=== PATIENT | male | born 1970 | race Caucasian/White ===

== ENCOUNTER 2017-01-31 18:46 | Inpatient (IN) | payer MEDICARE, MEDICAID ==
--- NOTE | 2017-01-31 18:48 | ED Physician Chart ---
Chief Complaint/HPI - Patient Information Date Seen:: 01/31/17 Time Seen:: 18:47 Chief Complaint:: elevated blood sugar History of Present Illness:: 46-year-old male history of mild mental retardation, diabetes and hypertension, brought in by ambulance from [facility] term [facility] with acute, severe, elevated blood sugar that was noticed about 2 hours prior to arrival. Also has associated elevated blood pressure. Had some associated dizziness earlier which is now resolved. Denies nausea, vomiting, diaphoresis, chest pain, palpitations, headache, acute vision changes. History limited as patient's underlying intellectual disability prevents him from providing an accurate history. History provided by EMS and EMS run sheet Historian:: Patient, EMS Review:: Nurse's Note Reviewed, EMS run form Reviewed, Transfer documents Reviewed Review of Systems - Review of Systems Other: Complete system review otherwise unremarkable except as noted in history of present illness. Past Medical History - Past Medical History Past Medical History: HTN, DM, Other Family History: None Social History: Non Smoker, No Alcohol, No Drug Use, Care Facility Surgical History: None Psychiatricy History: Bipolar Medication: Reviewed Family Medical History - Family Member Mother History Unknown: Yes Ethnicity: Non- Physical Exam - Physical Examination Other:: INITIAL VITAL SIGNS: Reviewed by me GENERAL: Alert and interactive. No acute distress HEAD: Head is normocephalic and atraumatic EYES: EOMI. PERRL. No scleral icterus. No conjunctival injection ENT: Moist mucous membranes. NECK: Supple. No masses. Full range of motion RESPIRATORY: No tachypnea. Clear breath sounds bilaterally. No wheezing, rales, or rhonchi CV: Regular rate and rhythm. No murmurs, rubs, or gallops ABDOMEN: Soft, non-distended, non-tender. No guarding. No rebound. No masses. EXTREMITIES: No deformity. No cyanosis. No edema. SKIN: Warm and dry. No obvious rashes. NEUROLOGIC: Alert and oriented. Face is symmetric. Speech is normal. Moves all extremities equally. Motor and sensory distally intact. Labs/Radiology/EKG Results - Lab Results Results: Lab Results 01/31/17 01/31/17 01/31/17 Range/Units 18:50 18:53 18:53 WBC 6.5 (4.8-10.8) Th/cmm RBC 3.89 L (4.30-5.70) Mil/cmm Hgb 12.5 L (13.2-17.3) gm/dL Hct 34.3 L (39.0-49.0) % MCV 88.2 (80-99) fl MCH 32.1 H (26.0-30.0) pg MCHC Differential 36.4 H (28.0-36.0) pg RDW 11.8 (11.5-20.0) % Plt Count 267 (150-400) Th/cmm MPV 8.2 fl Neutrophils % 44.4 (40.0-80.0) % Lymphocytes % 43.2 (20.0-50.0) % Monocytes % 5.7 (2.0-10.0) % Eosinophils % 5.8 H (0.0-5.0) % Basophils % 0.9 (0.0-2.0) % PT (9.5-11.5) SECONDS INR (0.5-1.4) Sodium 118 L* (136-145) mEq/L Potassium 4.0 (3.5-5.1) mEq/L Chloride 93 L (98-107) mEq/L Carbon Dioxide 24.5 (21.0-31.0) mEq/L Anion Gap 4.5 L (7.0-16.0) BUN 20 (7-25) mg/dL Creatinine 2.1 H (0.7-1.3) mg/dL Est GFR ( Amer) 43.8 (>90) ml/min Est GFR (Non-Af Amer) 36.2 ml/min BUN/Creatinine Ratio 9.5 Glucose 449 H (70-105) mg/dL POC Glucose (70 - 105) MG/DL Calcium 9.1 (8.6-10.3) mg/dL Total Bilirubin 0.3 (0.3-1.0) mg/dL AST 24 (13-39) U/L ALT 20 (7-52) U/L Alkaline Phosphatase 39 (34-104) U/L Troponin I (0.01-0.05) ng/mL Total Protein 5.8 L (6.0-8.3) gm/dL Albumin 3.3 L (4.2-5.5) gm/dL Globulin 2.5 gm/dL Albumin/Globulin Ratio 1.3 (1.0-1.8) Triglycerides 1007 H (<150) mg/dL Cholesterol 259 H (<200) mg/dL LDL Cholesterol Direct 84 (75-193) mg/dL HDL Cholesterol 30 (23-92) mg/dL Urine Source CLEAN C Urine Color STRAW Urine Clarity CLEAR (CLEAR) Urine pH 6.0 Ur Specific [place] 1.010 (1.005-1.030) Urine Protein 300 (NEGATIVE) mg/dL Urine Glucose (UA) 500 H (NEGATIVE) mg/dL Urine Ketones NEGATIVE (NEGATIVE) mg/dL Urine Blood SMALL H (NEGATIVE) Urine Nitrate NEGATIVE (NEGATIVE) Urine Bilirubin NEGATIVE (NEGATIVE) Urine Urobilinogen 0.2 (0.2 - 1.0) E.U./dL Ur Leukocyte Esterase NEGATIVE (NEGATIVE) Urine RBC 2-5 H (0-5) /hpf Urine WBC NONE SEEN (0-5) /hpf Ur Epithelial Cells NONE SEEN (FEW) /lpf Urine Bacteria NONE SEEN (NONE SEEN) /hpf 01/31/17 01/31/17 01/31/17 Range/Units 18:53 18:53 18:58 WBC (4.8-10.8) Th/cmm RBC (4.30-5.70) Mil/cmm Hgb (13.2-17.3) gm/dL Hct (39.0-49.0) % MCV (80-99) fl MCH (26.0-30.0) pg MCHC Differential (28.0-36.0) pg RDW (11.5-20.0) % Plt Count (150-400) Th/cmm MPV fl Neutrophils % (40.0-80.0) % Lymphocytes % (20.0-50.0) % Monocytes % (2.0-10.0) % Eosinophils % (0.0-5.0) % Basophils % (0.0-2.0) % PT 10.1 (9.5-11.5) SECONDS INR 0.97 (0.5-1.4) Sodium (136-145) mEq/L Potassium (3.5-5.1) mEq/L Chloride (98-107) mEq/L Carbon Dioxide (21.0-31.0) mEq/L Anion Gap (7.0-16.0) BUN (7-25) mg/dL Creatinine (0.7-1.3) mg/dL Est GFR ( Amer) (>90) ml/min Est GFR (Non-Af Amer) ml/min BUN/Creatinine Ratio Glucose (70-105) mg/dL POC Glucose 440 H (70 - 105) MG/DL Calcium (8.6-10.3) mg/dL Total Bilirubin (0.3-1.0) mg/dL AST (13-39) U/L ALT (7-52) U/L Alkaline Phosphatase (34-104) U/L Troponin I 0.02 (0.01-0.05) ng/mL Total Protein (6.0-8.3) gm/dL Albumin (4.2-5.5) gm/dL Globulin gm/dL Albumin/Globulin Ratio (1.0-1.8) Triglycerides (<150) mg/dL Cholesterol (<200) mg/dL LDL Cholesterol Direct (75-193) mg/dL HDL Cholesterol (23-92) mg/dL Urine Source Urine Color Urine Clarity (CLEAR) Urine pH Ur Specific [place] (1.005-1.030) Urine Protein (NEGATIVE) mg/dL Urine Glucose (UA) (NEGATIVE) mg/dL Urine Ketones (NEGATIVE) mg/dL Urine Blood (NEGATIVE) Urine Nitrate (NEGATIVE) Urine Bilirubin (NEGATIVE) Urine Urobilinogen (0.2 - 1.0) E.U./dL Ur Leukocyte Esterase (NEGATIVE) Urine RBC (0-5) /hpf Urine WBC (0-5) /hpf Ur Epithelial Cells (FEW) /lpf Urine Bacteria (NONE SEEN) /hpf - Radiology Results Comments:: Single AP VIEW Portable Chest X-ray was interpreted independently and contemporaneously by Fadi Mcmillan MD: No cardiomegaly Normal mediastinum No lung infiltrates No pneumothorax No soft tissue or bony abnormalities - EKG Interpretations Comments:: 12-lead EKG Interpretation by Fadi Mcmillan MD: Normal Sinus Rhythm with ventricular rate of 79 beats per minute Normal axis Normal intervals No acute ST or T wave changes. No obvious STEMI ED Septic Shock - . Is Septic Shock (SBP<90, OR Lactate>4 mmol\L) present?: No Reassessment (Disposition) - Reassessment Reassessment:: Patient received 2 L of IV normal saline. Blood sugar remained 424. Blood pressure was still 159 systolic. The patient has mental retardation making it difficult to obtain a good history. Patient also has hyponatremia 118. While there is probably some displacement due to the elevated blood sugar he still remained severely hyponatremic. Given the resistance to his treatment here in the ER he will need admission for further workup and treatment. Patient case discussed with admitting physician. Patient will be admitted for further workup and treatment. Reassessment Condition:: Unchanged - Diagnosis Diagnosis:: Acute hyperglycemia due to uncontrolled diabetes noticed type II Acute elevated blood pressure due to uncontrolled hypertension Acute kidney failure - Patient Disposition Discharge/Transfer:: Acute Care w/in this hosp Admitted to:: ICU Admitting Medical Physician:: Zia Gutierrez Time:: 20:29 Condition at Disposition:: Stable
[2017-01-31 19:06] LABS: % BASOPHILS 0.9 % (0.0-2.0); % EOSINOPHILS 5.8 % (0.0-5.0); % LYMPHOCYTES 43.2 % (20.0-50.0); % MONOCYTES 5.7 % (2.0-10.0); % NEUTROPHILS 44.4 % (40.0-80.0); HEMATOCRIT 34.3 % (39.0-49.0); HEMOGLOBIN 12.5 gm/dL (13.2-17.3); MEAN CELL VOLUME 88.2 fl (80-99); MEAN CORPUSCULAR HEMOGLOBIN 32.1 pg (26.0-30.0); MEAN CORPUSCULAR HGB CONC 36.4 pg (28.0-36.0); MEAN PLATELET VOLUME 8.2 fl; NEUTROPHILE ABSOLUTE 2.8 Th/cmm (1.8-8.0); PLATELET COUNT 267 Th/cmm (150-400); RED BLOOD COUNT 3.89 Mil/cmm (4.30-5.70); RED CELL DISTRIBUTION WIDTH 11.8 % (11.5-20.0); WHITE BLOOD COUNT 6.5 Th/cmm (4.8-10.8)
[2017-01-31 19:22] LABS: ALB/GLOB RATIO 1.3 (1.0-1.8); ANION GAP 4.5 (7.0-16.0); BILIRUBIN,TOTAL 0.3 mg/dL (0.3-1.0); BUN/CREATININE RATIO 9.5; CALCIUM SERUM 9.1 mg/dL (8.6-10.3); CARBON DIOXIDE 24.5 mEq/L (21.0-31.0); CREATININE - SERUM 2.1 mg/dL (0.7-1.3)
[2017-01-31 19:24] LABS: INR 0.97 (0.5-1.4); PROTHROMBIN TIME (TEST) 10.1 SECONDS (9.5-11.5); TROP I 0.02 ng/mL (0.01-0.05)
[2017-01-31 19:25] LABS: URINE BILIRUBIN NEGATIVE (NEGATIVE); URINE BLOOD SMALL (NEGATIVE); URINE COLOR STRAW; URINE GLUCOSE (UA) 500 mg/dL (NEGATIVE); URINE KETONE NEGATIVE (NEGATIVE); URINE PROTEIN 300 mg/dL (NEGATIVE); URINE UROBILINOGEN 0.2 E.U./dL (0.2 - 1.0)
[2017-01-31 19:26] LABS: URINE BACTERIA NONE SEEN /hpf (NONE SEEN); URINE EPITHELIAL CELLS NONE SEEN /lpf (FEW); URINE WBC NONE SEEN /hpf (0-5)
[2017-01-31] MEDS ORDERED: Sodium Chloride 0.9% 1,000 ML IV ONE ×2 (19:53→20:11)
[2017-01-31] MEDS ORDERED: INSULIN HUMAN REGULAR 100 UNITS/ML UNIT IVP ONE (20:24)
[2017-01-31] MEDS ORDERED: INSULIN HUMAN REGULAR 100 UNITS/ML UNIT ONE (20:36)
[2017-01-31 20:52] LABS: BNP 31.1 pg/mL (5.0-100.0)
[2017-01-31] MEDS ORDERED: INSULIN ASPART SLIDING SCALE 100 UNITS/ML UNIT SUBQ PRN (22:29)
[2017-01-31] MEDS ORDERED: Non-Formulary Item 1 EA (Albuterol Sulfate [Ventolin Hfa] 1 PUFF) IH PRN (23:36)
[2017-01-31] MEDS ORDERED: Albuterol Nebulizer 2.5mg/3mL HHN PRN (23:36)
[2017-01-31] MEDS: INSULIN HUMAN REGULAR 100 UNITS/ML UNIT SUBQ SCH (23:40)
[2017-01-31] MEDS: Sodium Chloride 0.9% 1,000 ML IV SCH (23:45)
--- NOTE | 2017-02-01 01:21 | Admit Criteria Form ---
Admit Criteria Forms - Admit Criteria Diagnosis: DIABETES Clinical Indications for Admission to Inpatient Care (Place 'X' for any and all applicable criteria): Admission is indicated by presence of ALL (if I & II) or ANY ONE (if III or IV) of the following (1)(2)(3)(4): [X]I. Diabetes is uncontrolled as indicated by ANY ONE of the following: [ ]a) Diabetic ketoacidosis as indicated by ALL of the following (8): [ ]i) Hyperglycemia (eg, plasma glucose greater than 200 mg/ dL (11.1 mmol/L)) [ ]ii) Acidosis (eg, arterial pH less than 7.30, serum bicarbonate level less than 15 mEq/L (mmol/L)) [ ]iii) Moderate ketonuria or ketonemia [ ]b) Hyperglycemic hyperosmolar state as indicated by ALL of the following(9)(10): [ ]i) Neurologic dysfunction (eg, stupor, coma, hemiparesis , seizure)(13) [ ]ii) Plasma glucose greater than 600 mg/dL (33.3 mmol/L) [ ]iii) Serum osmolality greater than 320 mOsm/kg (mmol/kg) [X]c) Severe signs or symptoms secondary to hyperglycemia indicated by ANY ONE of the following: [ ]i) Altered mental status(10) [ ]ii) Significant hypovolemia or dehydration [ ]iii) Intractable nausea or vomiting [ ]iv) Unexplained fever or severe infection [X]v) Severe electrolyte abnormality (eg, hypokalemia, hyperkalemia, hypernatremia) [X]II. Management at other levels of care (Also use Diabetes: Observation Care as appropriate) is not feasible because of ANY ONE of the following: [X]a) Condition was not adequately corrected with treatment at other levels of care. [ ]b) Treatment at other levels of care is not appropriate because of condition severity (eg, hyperosmolar coma). [ ]III. Contraindications and/or Inappropriate clinical situations for Observational Care in patients with Diabetes, when ANY ONE of the following is required: [ ]a) Patient require specific diagnostic workup or therapeutic intervention 22 [ ]b) Patient with abnormal vital signs or altered mental status 23 [ ]IV. General contraindications and/or Inappropriate clinical situations for Observational Care in patients with Diabetes, when ANY ONE of the following is required: [ ]a) Prediction of prolongation of LOS based on ANY ONE of the following may be considered as a contraindication for observational care 2, 3, 4, 5, 6, 7, 8, 9, 10, 11 [ ]i) Age > 65 yrs. [ ]ii) Patient arriving by ambulance [ ]iii) Patient with high acuity [ ]iv) Patient requiring vital sign monitoring [ ]v) Patient on IV medication [ ]b) Systolic blood pressures 180mmHg 3,12 [ ]c) Patient with altered mental status including delirium and other alteration of consciousness, (3) [ ]d) Patient whose discharge disposition will be to a intermediate home or rehabilitation home should not be managed in Emergency Department Observation Unit. CMS rule requires 3 days hospital stay before such placement.3,13 [ ]e) Patient with failure to thrive due to broad array of etiologies 3,16,17 [ ]f) Inability to ambulate 3,14 Extended stay beyond goal length of stay may be needed for(3)(20): [ ]a) Treatment of precipitating causes [ ]b) Development of hypoglycemia [ ]c) Complications of treatment [ ]d) Complications of decompensated diabetes (eg, acute gastric dilatation, persistent metabolic or neurologic derangement) [ ]e) Active Comorbidities [ ]f) Older patients( 65 years or older) The original [facility] content created by [employer] has been revised. The portions of the content which have been revised are identified through the use of italic text or in bold,and [facility] has neither reviewed nor approved the modified material. All other unmodified content is copyright [facility]. Please see references footnoted in the original [facility] edition 2016 Admit Criteria Met?: Yes
[2017-02-01] MEDS: INSULIN HUMAN REGULAR 100 UNITS/ML UNIT SUBQ SCH (07:03)
[2017-02-01] MEDS: INSULIN ASPART SLIDING SCALE 100 UNITS/ML UNIT SUBQ SCH ×4 (08:12→22:27)
--- NOTE | 2017-02-01 10:09 | Consultation ---
AGE: 46. SEX: Male. PHYSICIAN: Zia Gutierrez M.D. LUMBER PILER: Dr. Haley. REASON FOR THE CONSULT: Evaluating psychotropic medications. HISTORY OF PRESENT ILLNESS: The patient is a 46-year-old male with history of what seems to be schizoaffective disorder. The patient was admitted to the hospital with elevated blood sugar and I was asked to evaluate the patient. The patient said that he has history of mental illness, but he thinks that he has depression and suicide. The patient is taking medications, what seems to be schizoaffective disorder. The patient said that he is currently not suicidal or homicidal, and he denies any auditory or visual hallucinations or delusions. He also denies any hallucinations or delusions or paranoia. PAST PSYCHIATRIC HISTORY: The patient has history of what seems to be schizoaffective disorder. PAST MEDICAL HISTORY: Diabetes mellitus that seems to be out of control. SOCIAL HISTORY: The patient lives in skilled nursing. He is single, never and has no children. MENTAL STATUS EXAM: The patient appears his stated age. Anxious. Sad affect. In a depressed mood. Thought processes are mainly goal directed. The patient denies hallucinations or delusions and denies any suicidal or homicidal ideations. The patient is alert and oriented to time, place, person, and situation. Intact immediate, recent and remote memories. Fair insight. Fair judgment. ASSESSMENT: PRIMARY DIAGNOSIS: Schizoaffective disorder, depressed episode. TREATMENT PLAN AND RECOMMENDATIONS: The patient's blood sugar is out of control at this time and will decrease Zyprexa to 10 mg at bedtime. TREATMENT PLAN: We will get a Depakote blood level and we will also decrease Risperdal to 3 mg every morning. Also, we will continue other psychotropic medications, but plan to try to adjust psychotropic medications and decrease it. Thanks to Dr. Gutierrez and we will follow up with you. [facility]# [id number]
[2017-02-01] MEDS: Sodium Chloride 0.9% 1,000 ML IV SCH (13:57)
[2017-02-01] MEDS ORDERED: Ipratropium Neb 0.5 mg/2.5 mL UD HHN SCH (15:00)
--- NOTE | 2017-02-01 16:50 | History & Physical ---
CHIEF COMPLAINT: Hyperglycemia and 500 was blood sugar. HISTORY OF PRESENT ILLNESS: A 46-year-old male with history of mild mental retardation with a history of diabetes and hypertension, brought in by ambulance from [facility] with acute severe elevated blood sugars, which was noted to be there 2 hours prior to arrival and he also has associated elevated blood pressure and had some associated dizziness, which was resolved over a period of time. Denied nausea, vomiting, diaphoresis, chest pain, palpitations, headache, acute vision changes. History is limited secondary to his intellectual disability, which prevents him to give any accurate history, but the patient is very anxious and ____ psychotic medications and history basically obtained from the Emergency Room notes. REVIEW OF SYSTEMS: Other complete system review otherwise unremarkable except as noted in the history of the present illness. PAST MEDICAL HISTORY: Significant for hypertension, diabetes and mild mental retardation and hypertriglyceridemia. FAMILY HISTORY: Noncontributory. SOCIAL HISTORY: He is a smoker, but he has no history of alcohol or drug abuse. SURGICAL HISTORY: None. PSYCHIATRIC HISTORY: He has bipolar disorder. MEDICATIONS: The patient is on several medications. See the reconciliation list. ALLERGIES: THE PATIENT HAS SEVERAL ALLERGIES. HE IS ALLERGIC TO PENICILLIN, ASPIRIN, ____, EGGS, LATEX, IODINE, and see allergy list on the chart. FAMILY HISTORY: Noncontributory. The patient's ethnicity is non-. PHYSICAL EXAMINATION: VITAL SIGNS: Temperature of 96.8, pulse of 78, respirations of 149/88 at 6 o'clock in the morning and then it increased to 212/110 and 155/89 and it increased to 183/86 now at 1458 secondary to his anxiety and the patient wants to leave and he is anxious to smoke, respirations 16, oxygen saturation is 98% and pain scale level is 0. GENERAL: The patient is alert and interactive and not in any acute distress. Mild mental retardation, but overall he is very knowledgeable about his ____ and he was telling me that he would not like to stay here and he would like to go out and smoke and if he is not allowed, he can get out of the hospital on his own will. HEENT: Head is atraumatic and normocephalic. Eyes, EOMI and PERRL, no scleral icterus. No conjunctival injection noted. ENT, moist mucous membranes. NECK: Supple, no masses. Full range of motion noted. RESPIRATORY: No tachypnea. Clear breath sounds are heard. CARDIOVASCULAR: Regular rate and rhythm. No murmurs. ABDOMEN: Soft, nondistended, nontender, no guarding and no rebound. No masses. EXTREMITIES: No deformity. No cyanosis, no clubbing, no edema. SKIN: Warm and dry to palpation. No rashes. NEUROLOGIC: The patient is alert and oriented. Face is symmetric. Speech is normal. Moves all extremities equally. His motor and sensory functions are intact distally. LAB RESULTS: Pertinent lab results show WBC of 6.5 and hemoglobin 12.5 and platelets 267. His sodium is 118 and potassium 4. His GFR is 36.2 and BUN is 20 and creatinine is 2.1. His glucose initially was in 500 at the Emergency Room, but last night, it was 449 in the evening and calcium is 9.1 and his triglycerides 1007. Cholesterol 259, LDL 84, HDL 30 and urine is normal and the chest x-ray shows no cardiomegaly, normal mediastinum, no infiltrates and EKG shows normal sinus rhythm with ventricular rate of 79. COURSE IN THE EMERGENCY ROOM: He received 2 liters of normal saline and blood sugar remained at 424 and he also received 10 units of insulin and his blood pressure was still 159 systolic and the patient had hyponatremia of 118. This could be because of the elevated glucose. DIAGNOSES: At this time is: 1. Acute hyperglycemia due to uncontrolled diabetes type 2. 2. Acute elevated blood pressure due to uncontrolled hypertension. 3. Acute kidney failure. 4. Bipolar diagnosis. 5. Anxiety. 6. Multiple allergies to medications. PLAN: To admit him to the ICU initially secondary to his hyperglycemia and electrolyte imbalance and uncontrolled hypertension. Today, the patient seems to be stable except the blood pressure is elevated secondary to his anxiety, so I will start him on Ativan 1 mg p.o. q. 6 hours and we will transfer him to the med/surg tele, so he can smoke and probably his anxiety might come down and Dr. Haley has seen the patient already and started him on all the antipsychotic medications. So the plan is to observe him and then once the blood pressure is stable, probable discharge to long term. JOB# [id number]
[2017-02-01] MEDS: OLANZapine 10 mg Oral Disintegrating Tab PO SCH (20:57)
[2017-02-02] MEDS: Sodium Chloride 0.9% 1,000 ML IV SCH (01:45)
[2017-02-02 06:37] LABS: % BASOPHILS 0.9 % (0.0-2.0); % EOSINOPHILS 4.8 % (0.0-5.0); % LYMPHOCYTES 37.1 % (20.0-50.0); % MONOCYTES 5.8 % (2.0-10.0); % NEUTROPHILS 51.4 % (40.0-80.0); HEMOGLOBIN 13.1 gm/dL (13.2-17.3); MEAN CORPUSCULAR HEMOGLOBIN 30.4 pg (26.0-30.0); MEAN CORPUSCULAR HGB CONC 34.1 pg (28.0-36.0); MEAN PLATELET VOLUME 8.5 fl; NEUTROPHILE ABSOLUTE 4.2 Th/cmm (1.8-8.0); PLATELET COUNT 262 Th/cmm (150-400); RED BLOOD COUNT 4.31 Mil/cmm (4.30-5.70)
[2017-02-02 06:59] LABS: ALB/GLOB RATIO 1.2 (1.0-1.8); ANION GAP 4.3 (7.0-16.0); BILIRUBIN,TOTAL 0.2 mg/dL (0.3-1.0); CALCIUM SERUM 9.1 mg/dL (8.6-10.3); MAGNESIUM 1.7 mg/dL (1.9-2.7); PHOSPHOROUS 3.6 mg/dL (2.5-5.0); POTASSIUM SERUM 4.3 mEq/L (3.5-5.1); URIC ACID 4.2 mg/dL (4.4-7.6)
[2017-02-02 07:09] LABS: HEMATOCRIT 38.3 % (39.0-49.0)
[2017-02-02] MEDS: INSULIN 70/30 100 UNITS/ML SUBQ SCH (08:00)
[2017-02-02] MEDS: INSULIN ASPART SLIDING SCALE 100 UNITS/ML UNIT SUBQ SCH ×4 (08:00→21:16)
[2017-02-02] MEDS: Aspirin 81mg Chewable Tab PO SCH (08:53)
[2017-02-02] MEDS: Fenofibrate, Micronized 134 mg Cap PO SCH (08:53)
--- NOTE | 2017-02-02 09:21 | Diagnostic Imaging Report ---
Portable chest x-ray History: Cough Allowing for portable technique the heart size is normal. No focal pulmonary parenchymal processes. No hilar or mediastinal abnormalities. Impression: No acute abnormalities.
--- NOTE | 2017-02-02 09:56 | General Progress Note ---
Subjective - Review of Systems Events since last encounter: no distress Objective - Results Result Diagrams: 02/02/17 06:05 02/02/17 06:05 Recent Labs: Laboratory Last Values WBC 6.5 Th/cmm (4.8-10.8) 01/31/17 18:53 RBC 4.31 Mil/cmm (4.30-5.70) 02/02/17 06:05 Hgb 13.1 gm/dL (13.2-17.3) L 02/02/17 06:05 Hct 38.3 % (39.0-49.0) L D 02/02/17 06:05 MCV 89.0 fl (80-99) 02/02/17 06:05 MCH 30.4 pg (26.0-30.0) H 02/02/17 06:05 MCHC Differential 34.1 pg (28.0-36.0) 02/02/17 06:05 RDW 12.0 % (11.5-20.0) 02/02/17 06:05 Plt Count 262 Th/cmm (150-400) 02/02/17 06:05 MPV 8.5 fl 02/02/17 06:05 Neutrophils % 51.4 % (40.0-80.0) 02/02/17 06:05 Lymphocytes % 37.1 % (20.0-50.0) 02/02/17 06:05 Monocytes % 5.8 % (2.0-10.0) 02/02/17 06:05 Eosinophils % 4.8 % (0.0-5.0) 02/02/17 06:05 Basophils % 0.9 % (0.0-2.0) 02/02/17 06:05 PT 10.1 SECONDS (9.5-11.5) 01/31/17 18:53 INR 0.97 (0.5-1.4) 01/31/17 18:53 Sodium 133 mEq/L (136-145) L D 02/02/17 06:05 Potassium 4.3 mEq/L (3.5-5.1) 02/02/17 06:05 Chloride 109 mEq/L (98-107) H 02/02/17 06:05 Carbon Dioxide 24.0 mEq/L (21.0-31.0) 02/02/17 06:05 Anion Gap 4.3 (7.0-16.0) L 02/02/17 06:05 BUN 24 mg/dL (7-25) 02/02/17 06:05 Creatinine 2.0 mg/dL (0.7-1.3) H 02/02/17 06:05 Est GFR ( Amer) 46.3 ml/min (>90) 02/02/17 06:05 Est GFR (Non-Af Amer) 38.3 ml/min 02/02/17 06:05 BUN/Creatinine Ratio 12.0 02/02/17 06:05 Glucose 242 mg/dL (70-105) H 02/02/17 06:05 POC Glucose 260 MG/DL (70 - 105) H 02/01/17 22:05 Hemoglobin A1c % 14.2 % (4.0-6.0) H 01/31/17 18:52 Uric Acid 4.2 mg/dL (4.4-7.6) L 02/02/17 06:05 Calcium 9.1 mg/dL (8.6-10.3) 02/02/17 06:05 Phosphorus 3.6 mg/dL (2.5-5.0) 02/02/17 06:05 Magnesium 1.7 mg/dL (1.9-2.7) L 02/02/17 06:05 Total Bilirubin 0.2 mg/dL (0.3-1.0) L 02/02/17 06:05 AST 17 U/L (13-39) 02/02/17 06:05 ALT 18 U/L (7-52) 02/02/17 06:05 Alkaline Phosphatase 33 U/L (34-104) L 02/02/17 06:05 Troponin I 0.02 ng/mL (0.01-0.05) 01/31/17 18:53 B-Natriuretic Peptide 31.1 pg/mL (5.0-100.0) 01/31/17 18:53 Total Protein 5.8 gm/dL (6.0-8.3) L 02/02/17 06:05 Albumin 3.1 gm/dL (4.2-5.5) L 02/02/17 06:05 Globulin 2.7 gm/dL 02/02/17 06:05 Albumin/Globulin Ratio 1.2 (1.0-1.8) 02/02/17 06:05 Triglycerides 729 mg/dL (<150) H 02/02/17 06:05 Cholesterol 307 mg/dL (<200) H 02/02/17 06:05 LDL Cholesterol Direct 115 mg/dL (75-193) 02/02/17 06:05 HDL Cholesterol 36 mg/dL (23-92) 02/02/17 06:05 Amylase 53 U/L (29-103) 02/02/17 06:05 Lipase 113 U/L (11-82) H 02/02/17 06:05 TSH 2.27 uIU/ml (0.34-5.60) 02/02/17 06:05 Urine Source CLEAN C 01/31/17 18:50 Urine Color STRAW 01/31/17 18:50 Urine Clarity CLEAR (CLEAR) 01/31/17 18:50 Urine pH 6.0 01/31/17 18:50 Ur Specific [place] 1.010 (1.005-1.030) 01/31/17 18:50 Urine Protein 300 mg/dL (NEGATIVE) 01/31/17 18:50 Urine Glucose (UA) 500 mg/dL (NEGATIVE) H 01/31/17 18:50 Urine Ketones NEGATIVE mg/dL (NEGATIVE) 01/31/17 18:50 Urine Blood SMALL (NEGATIVE) H 01/31/17 18:50 Urine Nitrate NEGATIVE (NEGATIVE) 01/31/17 18:50 Urine Bilirubin NEGATIVE (NEGATIVE) 01/31/17 18:50 Urine Urobilinogen 0.2 E.U./dL (0.2 - 1.0) 01/31/17 18:50 Ur Leukocyte Esterase NEGATIVE (NEGATIVE) 01/31/17 18:50 Urine RBC 2-5 /hpf (0-5) H 01/31/17 18:50 Urine WBC NONE SEEN /hpf (0-5) 01/31/17 18:50 Ur Epithelial Cells NONE SEEN /lpf (FEW) 01/31/17 18:50 Urine Bacteria NONE SEEN /hpf (NONE SEEN) 01/31/17 18:50 - Physical Exam Vitals and I&O: Vital Signs Temp 98.1 F 02/02/17 04:00 Pulse 99 02/02/17 08:53 Resp 18 02/02/17 04:00 BP 180/111 02/02/17 08:53 Pulse Ox 94 02/02/17 04:00 Intake & Output 02/01/17 02/02/17 02/02/17 18:59 06:59 18:59 Intake Total 2680 1250 Output Total 2675 Balance 5 1250 Intake: Intake, IV Amount 1000 Sodium Chloride 0.9% 1, 1000 000 ml @ 75 mls/hr IV . [id number] [facility] Rx#:[id number] Oral 1680 1250 Output: Urine 2675 Other: # Voids 6 7 Active Medications: Current Medications Acetaminophen (Tylenol) 650 mg PO Q4H PRN PRN Reason: Fever > 101 Stop: 04/01/17 23:35 Albuterol Sulfate (Albuterol 2.5mg/3ml Neb Ud) 2.5 mg HHN Q4H PRN PRN Reason: Wheezing Amlodipine Besylate (Norvasc) 10 mg PO DAILY [facility] Stop: 04/03/17 08:59 Last Admin: 02/02/17 08:53 Dose: 10 mg Aspirin (Aspirin Chewable) 81 mg PO DAILY [facility] Stop: 04/03/17 08:59 Last Admin: 02/02/17 08:53 Dose: 81 mg Clonidine HCl (Catapres) 0.1 mg PO DAILY [facility] Stop: 04/02/17 08:59 Last Admin: 02/02/17 08:53 Dose: 0.1 mg Divalproex Sodium (Depakote Dr) 500 mg PO DAILY [facility] PRN Reason: Protocol Stop: 04/02/17 08:59 Last Admin: 02/02/17 08:54 Dose: 500 mg Fenofibrate (Tricor) 134 mg PO DAILY [facility] Stop: 04/03/17 08:59 Last Admin: 02/02/17 08:53 Dose: 134 mg Sodium Chloride (Nacl 0.9%) 1,000 mls @ 75 mls/hr IV .[id number] [facility] Stop: 04/01/17 23:35 Last Admin: 02/02/17 01:45 Dose: 75 mls/hr Ibuprofen (Motrin) 800 mg PO QID PRN PRN Reason: PAIN Stop: 04/01/17 23:35 Insulin Aspart (Novolog Insulin Sliding Scale) 0 units SUBQ ACHS [facility] PRN Reason: Protocol Stop: 04/02/17 07:29 Last Admin: 02/02/17 08:00 Dose: 6 units Insulin Human Isoph/Insulin Regular (Novolin 70/30) 7 units SUBQ QDAC [facility] PRN Reason: Protocol Stop: 04/03/17 07:29 Last Admin: 02/02/17 08:00 Dose: 7 unit Ipratropium [place] (Atrovent Neb 0.5mg/2.5ml) 0.5 mg HHN TIDRT [facility] Stop: 04/02/17 14:59 Lisinopril (Zestril) 40 mg PO DAILY [facility] Stop: 04/02/17 08:59 Last Admin: 02/01/17 09:00 Dose: 40 mg Lorazepam (Ativan) 1 mg PO Q6HR PRN; Protocol PRN Reason: Anxiety Stop: 04/02/17 15:41 Last Admin: 02/01/17 22:29 Dose: 1 mg Olanzapine (Zyprexa Zydis) 10 mg PO HS [facility] PRN Reason: Protocol Stop: 04/02/17 20:59 Last Admin: 02/01/17 20:57 Dose: 10 mg Paroxetine HCl (Paxil) 30 mg PO DAILY [facility] PRN Reason: Protocol Stop: 04/02/17 08:59 Last Admin: 02/02/17 08:52 Dose: 30 mg Pioglitazone HCl (Actos) 30 mg PO DAILY [facility] Stop: 04/02/17 08:59 Last Admin: 02/02/17 08:53 Dose: 30 mg Risperidone (Risperdal) 3 mg PO DAILY [facility] PRN Reason: Protocol Stop: 04/02/17 08:59 Last Admin: 02/02/17 08:52 Dose: 3 mg Sitagliptin Phosphate (Januvia) 100 mg PO DAILY [facility] Stop: 04/02/17 08:59 Last Admin: 02/02/17 08:52 Dose: 100 mg Trazodone HCl (Desyrel) 200 mg PO HS [facility] PRN Reason: Protocol Stop: 04/02/17 20:59 Last Admin: 02/01/17 20:57 Dose: 200 mg General: No acute distress HEENT: Atraumatic Neck: Supple Cardiovascular: Regular rate Abdomen: Bowel sounds Assessment/Plan - Problem List Patient Problems: All Active Problems DIZZINESS, WEAKNESS AND HYPERTENSION (Acute) - Plan Plan: as per order sheet Nutritional Asmnt/Malnutr-PDOC - Dietary Evaluation Malnutrition Findings (Please click <Entered> for more info): Nutritional Asmnt/Malnutrition Start: 02/01/17 12: 05 Text: Status: Complete Freq: Document 02/01/17 12:05 [email or web address] (Rec: 02/01/17 12:28 [email or web address] [email or web address]) Nutritional Asmnt/Malnutrition Patient General Information Nutritional Screening High Risk Screening Diagnosis ER: acute hyperglycemia DM, acute kidney failure, acute HTN Pertinent Medical Hx/Surgical Hx ER: mild mental retardation, DM, HTN Subjective Information 46 year old male from [facility]. Pt was sitting upright, pleasant, slow in resposnes and understanding due to mild mental retardation. Asked pt to name a carbohydrate, pt said "salt." Pt confirmed taking DM meds regularly at [facility]. Pt refused edu on DM at this time, RD briefly discussed DM and explained [facility] diet, pt expressed understanding. Observed breakfast at bedside mostly finished. Pt is edentulous, denied difficulties chewing. Current Diet Order/ Nutrition Support [id number] Pertinent Medications Lopid, Novolog, Nacl Pertinent Labs 01/31: sodium 118L, creatinine 2 .1H, glucose 449H, A1c 14.2H, triglyceirdes 1007H, cholesterol 259H Nutritional Hx/Data Height 1.57 m Height (Calculated Centimeters) 157.5 Current Weight (lbs) 66.587 kg Weight (Calculated Kilograms) 66.6 Weight (Calculated Grams) 80875.4 Usual body Weight (lbs) 145 [place] Body Weight 118lb Weight Status Overweight GI Symptoms Food Allergies No Skin Integrity/Comment: Skin intact. Current %PO Good (75-100%) Estimated Nutritional Goals Calories/Kcals/Kg IBW 118lb/53.6kg Kcals Calculated 1340-1608kcal (25-30kcal/kg) Protein Calculated 38-54g (0.7-1g/kg, acute renal ) Fluid: ml 1340-1608ml (1ml/kcal) Nutritional Problem 1. Problem Problem Altered nutrition related laboratory values related to Etiology DM 2 aeb Signs/Symptoms: glucose 449H on adm, A1c 14.2H Intervention/Recommendation Comments 1. Recommend [id number] cardiac/ low fat diet for glycemic control, renal, and elevated triglycerides/cholesterol labs . 2. Explained diet and provided brief edu on DM, limited due to pt's mental status. Expected Outcomes/Goals Expected Outcomes/Goals 1. PO intake to meet at least 75% of estimated nutritional needs.
[2017-02-02 09:57] LABS: WHITE BLOOD COUNT 8.3 Th/cmm (4.8-10.8)
--- NOTE | 2017-02-02 14:47 | Diagnostic Imaging Report ---
Renal ultrasound HISTORY: Abnormal renal function tests, diabetes The right kidney measures 11.4 x 5.4 x 4.4 cm. No focal lesions. No hydronephrosis. The left kidney measures 9.0 x 3.6 x 3.7 cm. No focal lesions or hydronephrosis. Asymmetric decreased vascularity associated with the left kidney compared to the right. Etiology uncertain. Clinical correlation is needed. No abnormalities are seen in the region of the urinary bladder. IMPRESSION: 1. Mildly asymmetric decreased size of the left kidney compared to the right along with a degree of asymmetric decreased vascularity. Etiology uncertain. Clinical correlation needed. 2. No focal lesions or hydronephrosis.
[2017-02-02] MEDS: OLANZapine 10 mg Oral Disintegrating Tab PO SCH (21:13)
[2017-02-02] MEDS: Atorvastatin Calcium 10 MG TAB PO SCH (21:13)
[2017-02-02 23:08] LABS: URINE BILIRUBIN NEGATIVE (NEGATIVE); URINE BLOOD TRACE (NEGATIVE); URINE COLOR PALE YELLOW; URINE GLUCOSE (UA) 500 mg/dL (NEGATIVE); URINE KETONE NEGATIVE (NEGATIVE); URINE PROTEIN >300 mg/dL (NEGATIVE); URINE UROBILINOGEN 0.2 E.U./dL (0.2 - 1.0)
[2017-02-02 23:09] LABS: URINE BACTERIA OCCASIONAL /hpf (NONE SEEN); URINE EPITHELIAL CELLS RARE /lpf (FEW); URINE RBC 0-2 /hpf (0-5); URINE WBC 0-2 /hpf (0-5)
[2017-02-03] MEDS: Sodium Chloride 0.9% 1,000 ML IV SCH (02:07)
[2017-02-03] MEDS: INSULIN 70/30 100 UNITS/ML SUBQ SCH ×2 (06:37→16:57)
[2017-02-03] MEDS: INSULIN ASPART SLIDING SCALE 100 UNITS/ML UNIT SUBQ SCH ×4 (06:37→21:04)
--- NOTE | 2017-02-03 06:51 | Consultation ---
The patient of Dr. Gutierrez. HISTORY AND PHYSICAL: This is a 46-year-old male who is mentally retarded, admitted to the hospital with uncontrolled diabetes. The patient has polyuria, polydipsia, no complaint of chest pain or palpitation. The patient has uncontrolled hypertension as well as uncontrolled diabetes, poor compliance with medication. PAST MEDICAL HISTORY: Hypertension, diabetes, mental retardation, schizophrenia, hyperlipidemia, CKD stage III, secondary to diabetes. FAMILY HISTORY: Unremarkable. SOCIAL HISTORY: No history of smoking or alcohol abuse. ALLERGIES: No known allergies. PHYSICAL EXAMINATION: VITAL SIGNS: Blood pressure 180/100, pulse 70, and respirations 20. HEAD: Normocephalic. No lumps or bumps. EYES: Pupils are equal and reactive to light. Fundi show AV nicking, sclerae white, and conjunctivae pink. NECK: Carotid 2+. Normal upstroke. JVD flat. Thyroid not palpable. Lymph nodes not palpable. CHEST: Shows increased AP diameter. No kyphosis or scoliosis. LUNGS: Bilateral bronchovesicular breath sounds. HEART: PMI fifth intercostal space with lateral to midclavicular line. S1, S2. No S3, S4. Systolic murmur, grade 2/6, lower left sternal border without radiation. ABDOMEN: Soft. Liver and spleen not palpable. No organomegaly. Bowel sounds are active. NEUROLOGIC: The patient has mental retardation. EXTREMITIES: Peripheral pulses 2+. No pedal edema. CLINICAL IMPRESSION: Uncontrolled diabetes mellitus type 2, diabetic chronic kidney disease stage III, uncontrolled hypertension, hyperlipidemia, schizoaffective disorder, and hyponatremia. PLAN: We will get antihypertensive treatment as well as control diabetes and have psych evaluation. JOB# [id number]
[2017-02-03] MEDS: Aspirin 81mg Chewable Tab PO SCH (08:54)
[2017-02-03] MEDS: Fenofibrate, Micronized 134 mg Cap PO SCH (08:55)
[2017-02-03] MEDS ORDERED: Fenofibrate, Micronized 134 mg Cap PO SCH (09:00)
--- NOTE | 2017-02-03 12:03 | General Progress Note ---
Subjective - Review of Systems Service Date: 02/03/17 Events since last encounter: no distress Objective - Results Result Diagrams: 02/02/17 06:05 02/02/17 06:05 Recent Labs: Laboratory Last Values WBC 8.3 Th/cmm (4.8-10.8) D 02/02/17 06:05 RBC 4.31 Mil/cmm (4.30-5.70) 02/02/17 06:05 Hgb 13.1 gm/dL (13.2-17.3) L 02/02/17 06:05 Hct 38.3 % (39.0-49.0) L D 02/02/17 06:05 MCV 89.0 fl (80-99) 02/02/17 06:05 MCH 30.4 pg (26.0-30.0) H 02/02/17 06:05 MCHC Differential 34.1 pg (28.0-36.0) 02/02/17 06:05 RDW 12.0 % (11.5-20.0) 02/02/17 06:05 Plt Count 262 Th/cmm (150-400) 02/02/17 06:05 MPV 8.5 fl 02/02/17 06:05 Neutrophils % 51.4 % (40.0-80.0) 02/02/17 06:05 Lymphocytes % 37.1 % (20.0-50.0) 02/02/17 06:05 Monocytes % 5.8 % (2.0-10.0) 02/02/17 06:05 Eosinophils % 4.8 % (0.0-5.0) 02/02/17 06:05 Basophils % 0.9 % (0.0-2.0) 02/02/17 06:05 PT 10.1 SECONDS (9.5-11.5) 01/31/17 18:53 INR 0.97 (0.5-1.4) 01/31/17 18:53 Sodium 133 mEq/L (136-145) L D 02/02/17 06:05 Potassium 4.3 mEq/L (3.5-5.1) 02/02/17 06:05 Chloride 109 mEq/L (98-107) H 02/02/17 06:05 Carbon Dioxide 24.0 mEq/L (21.0-31.0) 02/02/17 06:05 Anion Gap 4.3 (7.0-16.0) L 02/02/17 06:05 BUN 24 mg/dL (7-25) 02/02/17 06:05 Creatinine 2.0 mg/dL (0.7-1.3) H 02/02/17 06:05 Est GFR ( Amer) 46.3 ml/min (>90) 02/02/17 06:05 Est GFR (Non-Af Amer) 38.3 ml/min 02/02/17 06:05 BUN/Creatinine Ratio 12.0 02/02/17 06:05 Glucose 242 mg/dL (70-105) H 02/02/17 06:05 POC Glucose 272 MG/DL (70 - 105) H 02/03/17 11:36 Hemoglobin A1c % 14.2 % (4.0-6.0) H 01/31/17 18:52 Uric Acid 4.2 mg/dL (4.4-7.6) L 02/02/17 06:05 Calcium 9.1 mg/dL (8.6-10.3) 02/02/17 06:05 Phosphorus 3.6 mg/dL (2.5-5.0) 02/02/17 06:05 Magnesium 1.7 mg/dL (1.9-2.7) L 02/02/17 06:05 Total Bilirubin 0.2 mg/dL (0.3-1.0) L 02/02/17 06:05 AST 17 U/L (13-39) 02/02/17 06:05 ALT 18 U/L (7-52) 02/02/17 06:05 Alkaline Phosphatase 33 U/L (34-104) L 02/02/17 06:05 Troponin I 0.02 ng/mL (0.01-0.05) 01/31/17 18:53 B-Natriuretic Peptide 31.1 pg/mL (5.0-100.0) 01/31/17 18:53 Total Protein 5.8 gm/dL (6.0-8.3) L 02/02/17 06:05 Albumin 3.1 gm/dL (4.2-5.5) L 02/02/17 06:05 Globulin 2.7 gm/dL 02/02/17 06:05 Albumin/Globulin Ratio 1.2 (1.0-1.8) 02/02/17 06:05 Triglycerides 729 mg/dL (<150) H 02/02/17 06:05 Cholesterol 307 mg/dL (<200) H 02/02/17 06:05 LDL Cholesterol Direct 115 mg/dL (75-193) 02/02/17 06:05 HDL Cholesterol 36 mg/dL (23-92) 02/02/17 06:05 Amylase 53 U/L (29-103) 02/02/17 06:05 Lipase 113 U/L (11-82) H 02/02/17 06:05 Free T4 0.91 ng/dL (0.82-1.77) 02/02/17 06:05 Free T3 2.0 pg/mL (2.0-4.4) 02/02/17 06:05 TSH 2.27 uIU/ml (0.34-5.60) 02/02/17 06:05 Urine Source CLEAN C 02/02/17 21:45 Urine Color PALE YELLOW 02/02/17 21:45 Urine Clarity CLEAR (CLEAR) 02/02/17 21:45 Urine pH 7.0 02/02/17 21:45 Ur Specific [place] 1.020 (1.005-1.030) 02/02/17 21:45 Urine Protein >300 mg/dL (NEGATIVE) H 02/02/17 21:45 Urine Glucose (UA) 500 mg/dL (NEGATIVE) H 02/02/17 21:45 Urine Ketones NEGATIVE mg/dL (NEGATIVE) 02/02/17 21:45 Urine Blood TRACE (NEGATIVE) 02/02/17 21:45 Urine Nitrate NEGATIVE (NEGATIVE) 02/02/17 21:45 Urine Bilirubin NEGATIVE (NEGATIVE) 02/02/17 21:45 Urine Urobilinogen 0.2 E.U./dL (0.2 - 1.0) 02/02/17 21:45 Ur Leukocyte Esterase NEGATIVE (NEGATIVE) 02/02/17 21:45 Urine RBC 0-2 /hpf (0-5) H 02/02/17 21:45 Urine WBC 0-2 /hpf (0-5) 02/02/17 21:45 Ur Epithelial Cells RARE /lpf (FEW) 02/02/17 21:45 Urine Bacteria OCCASIONAL /hpf (NONE SEEN) 02/02/17 21:45 U Random Total Protein 222.0 mg/dL 02/02/17 21:45 Ur Random Sodium 80 mmol/L 02/02/17 21:45 Thyroid Peroxidase Ab 9 IU/mL (0-34) 02/02/17 06:05 - Physical Exam Vitals and I&O: Vital Signs Temp 98.4 F 02/03/17 04:00 Pulse 72 02/03/17 09:55 Resp 20 02/03/17 04:00 BP 146/87 02/03/17 09:55 Pulse Ox 94 02/03/17 04:00 Intake & Output 02/02/17 02/03/17 02/03/17 18:59 06:59 18:59 Intake Total 2100 240 Output Total 1000 Balance 2100 -760 Intake: Intake, IV Amount 1000 Sodium Chloride 0.9% 1, 1000 000 ml @ 75 mls/hr IV . [id number] [facility] Rx#:[id number] Oral 1100 240 Output: Urine 1000 Other: # Voids 4 Active Medications: Current Medications Acetaminophen (Tylenol) 650 mg PO Q4H PRN PRN Reason: Fever > 101 Stop: 04/01/17 23:35 Albuterol Sulfate (Albuterol 2.5mg/3ml Neb Ud) 2.5 mg HHN Q4H PRN PRN Reason: Wheezing Amlodipine Besylate (Norvasc) 10 mg PO DAILY [facility] Stop: 04/03/17 08:59 Last Admin: 02/03/17 08:55 Dose: 10 mg Aspirin (Aspirin Chewable) 81 mg PO DAILY [facility] Stop: 04/03/17 08:59 Last Admin: 02/03/17 08:54 Dose: 81 mg Atorvastatin Calcium (Lipitor) 20 mg PO HS [facility] PRN Reason: Protocol Stop: 04/03/17 20:59 Last Admin: 02/02/17 21:13 Dose: 20 mg Clonidine HCl (Catapres) 0.1 mg PO DAILY [facility] Stop: 04/02/17 08:59 Last Admin: 02/03/17 08:55 Dose: 0.1 mg Clonidine HCl (Catapres) 0.1 mg PO Q6HR PRN PRN Reason: BLOOD PRESSURE Stop: 04/03/17 17:59 Divalproex Sodium (Depakote Dr) 500 mg PO DAILY [facility] PRN Reason: Protocol Stop: 04/02/17 08:59 Last Admin: 02/03/17 08:55 Dose: 500 mg Fenofibrate (Tricor) 134 mg PO DAILY [facility] Stop: 04/03/17 08:59 Last Admin: 02/03/17 08:55 Dose: 134 mg Fenofibrate (Tricor) 134 mg PO DAILY [facility] Stop: 04/04/17 08:59 Last Admin: 02/03/17 11:50 Dose: Not Given Sodium Chloride (Nacl 0.9%) 1,000 mls @ 75 mls/hr IV .[id number] [facility] Stop: 04/01/17 23:35 Last Admin: 02/03/17 02:07 Dose: 75 mls/hr Ibuprofen (Motrin) 800 mg PO QID PRN PRN Reason: PAIN Stop: 04/01/17 23:35 Insulin Aspart (Novolog Insulin Sliding Scale) 0 units SUBQ ACHS [facility] PRN Reason: Protocol Stop: 04/02/17 07:29 Last Admin: 02/03/17 11:46 Dose: 6 units Insulin Human Isoph/Insulin Regular (Novolin 70/30) 7 units SUBQ QDAC [facility] PRN Reason: Protocol Stop: 04/03/17 07:29 Last Admin: 02/03/17 06:37 Dose: 7 unit Ipratropium [place] (Atrovent Neb 0.5mg/2.5ml) 0.5 mg HHN TIDRT [facility] Stop: 04/02/17 14:59 Lisinopril (Zestril) 40 mg PO DAILY [facility] Stop: 04/02/17 08:59 Last Admin: 02/03/17 08:56 Dose: 40 mg Lorazepam (Ativan) 1 mg PO Q6HR PRN; Protocol PRN Reason: Anxiety Stop: 04/02/17 15:41 Last Admin: 02/01/17 22:29 Dose: 1 mg Mupirocin (Bactroban Oint) 1 appl NS BID [facility] Stop: 02/07/17 09:01 Last Admin: 02/03/17 08:54 Dose: 1 appl Olanzapine (Zyprexa Zydis) 10 mg PO HS [facility] PRN Reason: Protocol Stop: 04/02/17 20:59 Last Admin: 02/02/17 21:13 Dose: 10 mg Paroxetine HCl (Paxil) 30 mg PO DAILY [facility] PRN Reason: Protocol Stop: 04/02/17 08:59 Last Admin: 02/03/17 08:54 Dose: 30 mg Pioglitazone HCl (Actos) 30 mg PO DAILY [facility] Stop: 04/02/17 08:59 Last Admin: 02/03/17 08:55 Dose: 30 mg Risperidone (Risperdal) 3 mg PO DAILY [facility] PRN Reason: Protocol Stop: 04/02/17 08:59 Last Admin: 02/03/17 08:55 Dose: 3 mg Sitagliptin Phosphate (Januvia) 100 mg PO DAILY [facility] Stop: 04/02/17 08:59 Last Admin: 02/03/17 08:54 Dose: 100 mg Trazodone HCl (Desyrel) 200 mg PO HS [facility] PRN Reason: Protocol Stop: 04/02/17 20:59 Last Admin: 02/02/17 21:13 Dose: 200 mg General: No acute distress, no Mild distress HEENT: Atraumatic Neck: Supple Cardiovascular: Regular rate Abdomen: Bowel sounds Assessment/Plan - Problem List Patient Problems: All Active Problems DIZZINESS, WEAKNESS AND HYPERTENSION (Acute) - Plan Plan: [place] discharge planning Nutritional Asmnt/Malnutr-PDOC - Dietary Evaluation Malnutrition Findings (Please click <Entered> for more info): Nutritional Asmnt/Malnutrition Start: 02/01/17 12: 05 Text: Status: Complete Freq: Document 02/01/17 12:05 GSUN (Rec: 02/01/17 12:28 [id number] [email or web address]) Nutritional Asmnt/Malnutrition Patient General Information Nutritional Screening High Risk Screening Diagnosis ER: acute hyperglycemia DM, acute kidney failure, acute HTN Pertinent Medical Hx/Surgical Hx ER: mild mental retardation, DM, HTN Subjective Information 46 year old male from [facility]. Pt was sitting upright, pleasant, slow in resposnes and understanding due to mild mental retardation. Asked pt to name a carbohydrate, pt said "salt." Pt confirmed taking DM meds regularly at [facility]. Pt refused edu on DM at this time, RD briefly discussed DM and explained [facility] diet, pt expressed understanding. Observed breakfast at bedside mostly finished. Pt is edentulous, denied difficulties chewing. Current Diet Order/ Nutrition Support [id number] Pertinent Medications Lopid, Novolog, Nacl Pertinent Labs 01/31: sodium 118L, creatinine 2 .1H, glucose 449H, A1c 14.2H, triglyceirdes 1007H, cholesterol 259H Nutritional Hx/Data Height 1.57 m Height (Calculated Centimeters) 157.5 Current Weight (lbs) 66.587 kg Weight (Calculated Kilograms) 66.6 Weight (Calculated Grams) 86206.4 Usual body Weight (lbs) 145 [place] Body Weight 118lb Weight Status Overweight GI Symptoms Food Allergies No Skin Integrity/Comment: Skin intact. Current %PO Good (75-100%) Estimated Nutritional Goals Calories/Kcals/Kg IBW 118lb/53.6kg Kcals Calculated 1340-1608kcal (25-30kcal/kg) Protein Calculated 38-54g (0.7-1g/kg, acute renal ) Fluid: ml 1340-1608ml (1ml/kcal) Nutritional Problem 1. Problem Problem Altered nutrition related laboratory values related to Etiology DM 2 aeb Signs/Symptoms: glucose 449H on adm, A1c 14.2H Intervention/Recommendation Comments 1. Recommend [id number] cardiac/ low fat diet for glycemic control, renal, and elevated triglycerides/cholesterol labs . 2. Explained diet and provided brief edu on DM, limited due to pt's mental status. Expected Outcomes/Goals Expected Outcomes/Goals 1. PO intake to meet at least 75% of estimated nutritional needs.
--- NOTE | 2017-02-03 17:20 | Consultation ---
ROLL COATING MACHINE OPERATOR: Noel Mijares M.D. REASON FOR CONSULTATION: Worsening kidney function, electrolyte imbalance and fluid management. HISTORY OF PRESENT ILLNESS: This is a 46-year-old male with past medical history of chronic kidney disease, who came in because of dizziness. A few hours prior to admission, he was seen by his family medical physician. His blood sugar at that time was 505 with hyperlipidemia. He was then advised to proceed to the Emergency Room. His blood sugar at ER was 449 with triglycerides of 1007 and cholesterol of 259. There were periods of elevated blood pressure. He received insulin for his elevated sugar as well as blood pressure medications. He was subsequently admitted for further evaluation and management. Two years prior to consultation, he was diagnosed to have chronic kidney disease. Labs drawn 3 weeks ago revealed a sodium 130, BUN/creatinine of 36/2.7. However, his sodium on admission was 118 with a BUN/creatinine of 20/2.1. He had no history of nausea and vomiting as well as diarrhea. He is not taking any diuretics. PAST MEDICAL HISTORY: 1. Chronic kidney disease. 2. Type 2 diabetes mellitus. 3. Essential hypertension. 4. Schizoaffective disorder. 5. Dyslipidemia. 6. Anxiety disorder. 7. Intellectual disability. MEDICATIONS: He is currently on acetaminophen, albuterol, aspirin, atorvastatin, divalproex, fenofibrate, Ibuprofen, insulin 70/30, aspart, ipratropium, lisinopril, lorazepam, magnesium, mupirocin, sodium chloride IV, olanzapine, paroxetine, ____, sitagliptin, amlodipine, clonidine Risperdal and trazodone. ALLERGIES: ALLERGIC TO PENICILLIN AND ASPIRIN. SOCIAL HISTORY: He still smokes as much as he can while in a facility. No history of alcohol abuse. 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 FAMILY HISTORY: Unknown at the present time. REVIEW OF SYSTEMS: GENERAL: Denied any further weakness. His appetite has improved. No fever, no chills. HEENT: He came in with some dizziness; however, he feels better. Denies any headaches. Wears glasses due to poor vision. His acuity remains within acceptable limits. CARDIORESPIRATORY: He has a history of hypertension. At this point, he has no chest pain, palpitations, diaphoresis or cough. GASTROINTESTINAL: No nausea, vomiting, abdominal pain, cramping, hematemesis, melena, hematochezia. No diarrhea. ENDOCRINE: He comes in with diabetes out of control, no thyroid abnormalities. He also has worsening dyslipidemia. MUSCULOSKELETAL: Denied any arthralgias. GENITOURINARY: History of kidney failure for the last 2 years. No dysuria, no hematuria. NEUROPSYCHIATRIC: No syncopal episode. No seizure activity. He has schizoaffective disorder along with intellectual disability. PHYSICAL EXAMINATION: GENERAL: The patient is alert, verbal, comfortable, not in any distress, but quite intact. VITAL SIGNS: His blood pressure is 146/87, pulse is 97, afebrile. SKIN: Good turgor, warm, no rash or jaundice appreciated. HEENT: Head, normocephalic, atraumatic. Eyes: Extraocular muscles intact. Pupils equal, round, reactive to light and accommodate. Anicteric sclerae, pink conjunctivae. Nose midline nasal septum. Mouth, moist mucosa with adequate dentition. NECK: Supple, no adenopathy, no thyromegaly, no bruits. Trachea is palpated in the midline. CHEST AND CARDIOVASCULAR: S1, S2, no rub, murmur or gallop appreciated. Point of maximal impulse in fifth intercostal space, left midclavicular line. No abdominal or femoral bruits appreciated. LUNGS: Equal expansion. No use of accessory muscles. No supraclavicular retractions. Decreased breath sounds, but clear to auscultation without any wheezes. ABDOMEN: Mildly globular, soft, positive for bowel sounds. No bruits either diastolic or systolic. RECTAL: The patient refused. GENITOURINARY: He refused. EXTREMITIES: No evidence of any edema, cyanosis or clubbing. NEUROLOGIC: The patient is alert, verbal, motor is 5/5. Cranial nerves 3-12 intact. Sensory intact. LABORATORY DATA: Sodium is 133, potassium 4.3, chloride 109, bicarbonate 24, BUN 24, creatinine is 2, glucose 242, uric acid 4.2, calcium 9.1, phosphorus 3.6, magnesium 1.7, albumin is 3.1 and triglycerides 729, cholesterol 307, amylase 50, lipase is ____. Vitamin D level 17.5. TSH is 2.27. White count is 8.3, hemoglobin 13.1, hematocrit 38.2, polys is 51%, platelets 262. Renal ultrasound showed mildly decreased size of the left kidney. Hemoglobin A1c was 14.2%. BNP 31. Troponin of 0.02. IMPRESSION: 1. Chronic kidney disease, MDRD GFR 46 mL per minute, stage III. The patient's chronic kidney disease is secondary to diabetic nephropathy with proteinuria. 2. Hyponatremia, likely pseudohyponatremia secondary to severe hyperglycemia as well as hyperlipidemia 3. Type 2 diabetes mellitus out of control. 4. Essential hypertension with chronic kidney disease. 5. Moderate malnutrition. 6. Schizoaffective disorder. 7. Dyslipidemia. 8. Anxiety disorder. 9. Intellectual disability. PLAN: 1. Urine spot sodium. 2. Urine microalbumin to creatinine ratio. 3. Discontinue IV fluids since sodium has now gone up to 133. 4. Follow up electrolytes. 5. Discontinue ibuprofen. 6. Consider discontinuing lisinopril if kidney function does not improve. Thank you, Dr. Vora for this consult. We will follow the patient closely with you. [facility]# [id number]
[2017-02-03] MEDS: Atorvastatin Calcium 10 MG TAB PO SCH (21:04)
[2017-02-03] MEDS: OLANZapine 10 mg Oral Disintegrating Tab PO SCH (21:04)
[2017-02-03 23:39] LABS: SURFACE AREA 1.67
[2017-02-04 05:24] LABS: ALB/GLOB RATIO 1.2 (1.0-1.8); ANION GAP 4.6 (7.0-16.0); BILIRUBIN,TOTAL 0.3 mg/dL (0.3-1.0); BUN/CREATININE RATIO 15.2; CALCIUM SERUM 9.1 mg/dL (8.6-10.3); CARBON DIOXIDE 27.3 mEq/L (21.0-31.0); CREATININE - SERUM 2.1 mg/dL (0.7-1.3); MAGNESIUM 1.7 mg/dL (1.9-2.7); PHOSPHOROUS 3.8 mg/dL (2.5-5.0); POTASSIUM SERUM 4.9 mEq/L (3.5-5.1); URIC ACID 4.3 mg/dL (4.4-7.6)
[2017-02-04 05:33] LABS: HEMATOCRIT 35.4 % (39.0-49.0); HEMOGLOBIN 12.2 gm/dL (13.2-17.3); MEAN CELL VOLUME 88.6 fl (80-99); MEAN CORPUSCULAR HEMOGLOBIN 30.6 pg (26.0-30.0); MEAN CORPUSCULAR HGB CONC 34.5 pg (28.0-36.0); MEAN PLATELET VOLUME 8.5 fl; PLATELET COUNT 249 Th/cmm (150-400); RED BLOOD COUNT 3.99 Mil/cmm (4.30-5.70); RED CELL DISTRIBUTION WIDTH 11.9 % (11.5-20.0); WHITE BLOOD COUNT 8.3 Th/cmm (4.8-10.8)
[2017-02-04 06:24] LABS: BAND NEUTROPHILE 0 % (0-10); BASOPHIL 0 % (0-3); EOSINOPHIL 5 % (0-5); NEUTROPHILS 52 % (40-80); PLATELET ESTIMATE ADEQUATE (NORMAL); PLATELET MORPHOLOGY NORMAL (NORMAL); TOTAL CELLS COUNTED 100
[2017-02-04] MEDS: INSULIN ASPART SLIDING SCALE 100 UNITS/ML UNIT SUBQ SCH ×2 (06:32→11:46)
[2017-02-04] MEDS: INSULIN 70/30 100 UNITS/ML SUBQ SCH (06:33)
[2017-02-04] MEDS ORDERED: INSULIN 70/30 100 UNITS/ML SUBQ SCH (07:30)
[2017-02-04] MEDS: Fenofibrate, Micronized 134 mg Cap PO SCH (09:08)
[2017-02-04] MEDS: Aspirin 81mg Chewable Tab PO SCH (09:08)
--- NOTE | 2017-02-04 09:26 | General Progress Note ---
Subjective - Review of Systems Events since last encounter: patient laying in bed Objective - Results Result Diagrams: 02/04/17 04:43 02/04/17 04:43 Recent Labs: Laboratory Last Values WBC 8.3 Th/cmm (4.8-10.8) 02/04/17 04:43 RBC 3.99 Mil/cmm (4.30-5.70) L 02/04/17 04:43 Hgb 12.2 gm/dL (13.2-17.3) L 02/04/17 04:43 Hct 35.4 % (39.0-49.0) L 02/04/17 04:43 MCV 88.6 fl (80-99) 02/04/17 04:43 MCH 30.6 pg (26.0-30.0) H 02/04/17 04:43 MCHC Differential 34.5 pg (28.0-36.0) 02/04/17 04:43 RDW 11.9 % (11.5-20.0) 02/04/17 04:43 Plt Count 249 Th/cmm (150-400) 02/04/17 04:43 MPV 8.5 fl 02/04/17 04:43 Neutrophils % 51.4 % (40.0-80.0) 02/02/17 06:05 Band Neutrophils % 0 % (0-10) 02/04/17 04:43 Lymphocytes % 37.1 % (20.0-50.0) 02/02/17 06:05 Monocytes % 5.8 % (2.0-10.0) 02/02/17 06:05 Eosinophils % 4.8 % (0.0-5.0) 02/02/17 06:05 Basophils % 0.9 % (0.0-2.0) 02/02/17 06:05 Neutrophils (Manual) 52 % (40-80) 02/04/17 04:43 Lymphocytes 42 % (20-50) 02/04/17 04:43 Monocytes 1 % (2-10) L 02/04/17 04:43 Eosinophils 5 % (0-5) 02/04/17 04:43 Basophils 0 % (0-3) 02/04/17 04:43 Platelet Estimate ADEQUATE (NORMAL) 02/04/17 04:43 Platelet Morphology NORMAL (NORMAL) 02/04/17 04:43 RBC Morph Micro Appear NORMAL (NORMAL) 02/04/17 04:43 Eos Smear Source URINE 02/04/17 00:30 Eos Smear Total Cells NONE SEEN (NONE SEEN) 02/04/17 00:30 PT 10.1 SECONDS (9.5-11.5) 01/31/17 18:53 INR 0.97 (0.5-1.4) 01/31/17 18:53 Sodium 134 mEq/L (136-145) L 02/04/17 04:43 Potassium 4.9 mEq/L (3.5-5.1) 02/04/17 04:43 Chloride 107 mEq/L (98-107) 02/04/17 04:43 Carbon Dioxide 27.3 mEq/L (21.0-31.0) 02/04/17 04:43 Anion Gap 4.6 (7.0-16.0) L 02/04/17 04:43 BUN 32 mg/dL (7-25) H 02/04/17 04:43 Creatinine 2.1 mg/dL (0.7-1.3) H 02/04/17 04:43 Est GFR ( Amer) 43.8 ml/min (>90) 02/04/17 04:43 Est GFR (Non-Af Amer) 36.2 ml/min 02/04/17 04:43 BUN/Creatinine Ratio 15.2 02/04/17 04:43 Glucose 194 mg/dL (70-105) H 02/04/17 04:43 POC Glucose 193 MG/DL (70 - 105) H 02/04/17 05:58 Hemoglobin A1c % 14.2 % (4.0-6.0) H 01/31/17 18:52 Uric Acid 4.3 mg/dL (4.4-7.6) L 02/04/17 04:43 Calcium 9.1 mg/dL (8.6-10.3) 02/04/17 04:43 Phosphorus 3.8 mg/dL (2.5-5.0) 02/04/17 04:43 Magnesium 1.7 mg/dL (1.9-2.7) L 02/04/17 04:43 Total Bilirubin 0.3 mg/dL (0.3-1.0) 02/04/17 04:43 AST 17 U/L (13-39) 02/04/17 04:43 ALT 15 U/L (7-52) 02/04/17 04:43 Alkaline Phosphatase 29 U/L (34-104) L 02/04/17 04:43 Troponin I 0.02 ng/mL (0.01-0.05) 01/31/17 18:53 B-Natriuretic Peptide 31.1 pg/mL (5.0-100.0) 01/31/17 18:53 Total Protein 5.6 gm/dL (6.0-8.3) L 02/04/17 04:43 Albumin 3.0 gm/dL (4.2-5.5) L 02/04/17 04:43 Globulin 2.6 gm/dL 02/04/17 04:43 Albumin/Globulin Ratio 1.2 (1.0-1.8) 02/04/17 04:43 Triglycerides 729 mg/dL (<150) H 02/02/17 06:05 Cholesterol 307 mg/dL (<200) H 02/02/17 06:05 LDL Cholesterol Direct 115 mg/dL (75-193) 02/02/17 06:05 HDL Cholesterol 36 mg/dL (23-92) 02/02/17 06:05 Amylase 53 U/L (29-103) 02/02/17 06:05 Lipase 113 U/L (11-82) H 02/02/17 06:05 Vitamin B12 684 pg/mL (211-946) 02/02/17 06:05 Vitamin D 25-Hydroxy 17.5 ng/mL (30.0-100.0) L 02/02/17 06:05 Free T4 0.91 ng/dL (0.82-1.77) 02/02/17 06:05 Free T3 2.0 pg/mL (2.0-4.4) 02/02/17 06:05 TSH 2.27 uIU/ml (0.34-5.60) 02/02/17 06:05 Urine Source CLEAN C 02/02/17 21:45 Urine Color PALE YELLOW 02/02/17 21:45 Urine Clarity CLEAR (CLEAR) 02/02/17 21:45 Urine pH 7.0 02/02/17 21:45 Ur Specific [place] 1.020 (1.005-1.030) 02/02/17 21:45 Urine Protein >300 mg/dL (NEGATIVE) H 02/02/17 21:45 Urine Glucose (UA) 500 mg/dL (NEGATIVE) H 02/02/17 21:45 Urine Ketones NEGATIVE mg/dL (NEGATIVE) 02/02/17 21:45 Urine Blood TRACE (NEGATIVE) 02/02/17 21:45 Urine Nitrate NEGATIVE (NEGATIVE) 02/02/17 21:45 Urine Bilirubin NEGATIVE (NEGATIVE) 02/02/17 21:45 Urine Urobilinogen 0.2 E.U./dL (0.2 - 1.0) 02/02/17 21:45 Ur Leukocyte Esterase NEGATIVE (NEGATIVE) 02/02/17 21:45 Urine RBC 0-2 /hpf (0-5) H 02/02/17 21:45 Urine WBC 0-2 /hpf (0-5) 02/02/17 21:45 Ur Epithelial Cells RARE /lpf (FEW) 02/02/17 21:45 Urine Bacteria OCCASIONAL /hpf (NONE SEEN) 02/02/17 21:45 U Random Total Protein 222.0 mg/dL 02/02/17 21:45 Ur Random Sodium 103 mmol/L 02/04/17 00:30 Urine Collection Time 24 hours 02/03/17 23:30 Urine Total Volume 3400 ml 02/03/17 23:30 Urine Creatinine 45.0 mg/dl (39.0-259.0) 02/04/17 00:30 Creat Clearance 24 Hr 46 ml/min (97.00-137.00) L 02/03/17 23:30 Body Surface Area 1.67 02/03/17 23:30 Thyroid Peroxidase Ab 9 IU/mL (0-34) 02/02/17 06:05 - Physical Exam Vitals and I&O: Vital Signs Temp 98.3 F 02/04/17 04:00 Pulse 80 02/04/17 09:10 Resp 18 02/04/17 04:00 BP 170/100 02/04/17 09:10 Pulse Ox 98 02/04/17 04:00 Intake & Output 02/03/17 02/04/17 02/04/17 18:59 06:59 18:59 Intake Total 1150 650 Output Total 1150 Balance 1150 -500 Intake: Oral 1150 650 Output: Urine 1150 Other: # Voids 4 Active Medications: Current Medications Acetaminophen (Tylenol) 650 mg PO Q4H PRN PRN Reason: Fever > 101 Stop: 04/01/17 23:35 Albuterol Sulfate (Albuterol 2.5mg/3ml Neb Ud) 2.5 mg HHN Q4H PRN PRN Reason: Wheezing Amlodipine Besylate (Norvasc) 10 mg PO DAILY [facility] Stop: 04/03/17 08:59 Last Admin: 02/04/17 09:09 Dose: 10 mg Aspirin (Aspirin Chewable) 81 mg PO DAILY [facility] Stop: 04/03/17 08:59 Last Admin: 02/04/17 09:08 Dose: 81 mg Atorvastatin Calcium (Lipitor) 20 mg PO HS [facility] PRN Reason: Protocol Stop: 04/03/17 20:59 Last Admin: 02/03/17 21:04 Dose: 20 mg Clonidine HCl (Catapres) 0.1 mg PO DAILY [facility] Stop: 04/02/17 08:59 Last Admin: 02/04/17 09:09 Dose: 0.1 mg Clonidine HCl (Catapres) 0.1 mg PO Q6HR PRN PRN Reason: BLOOD PRESSURE Stop: 04/03/17 17:59 Divalproex Sodium (Depakote Dr) 500 mg PO DAILY [facility] PRN Reason: Protocol Stop: 04/02/17 08:59 Last Admin: 02/04/17 09:09 Dose: 500 mg Ergocalciferol (Vitamin D) 50,000 iu PO QSAT [facility] Stop: 04/05/17 08:44 Last Admin: 02/04/17 09:11 Dose: 50,000 iu Fenofibrate (Tricor) 134 mg PO DAILY [facility] Stop: 04/03/17 08:59 Last Admin: 02/04/17 09:08 Dose: 134 mg Fenofibrate (Tricor) 134 mg PO DAILY [facility] Stop: 04/04/17 08:59 Last Admin: 02/03/17 11:50 Dose: Not Given Insulin Aspart (Novolog Insulin Sliding Scale) 0 units SUBQ ACHS [facility] PRN Reason: Protocol Stop: 04/02/17 07:29 Last Admin: 02/04/17 06:32 Dose: 2 units Insulin Human Isoph/Insulin Regular (Novolin 70/30) 7 units SUBQ BIDAC [facility] PRN Reason: Protocol Stop: 04/03/17 07:29 Last Admin: 02/04/17 06:33 Dose: 7 unit Ipratropium [place] (Atrovent Neb 0.5mg/2.5ml) 0.5 mg HHN TIDRT [facility] Stop: 04/02/17 14:59 Lisinopril (Zestril) 40 mg PO DAILY [facility] Stop: 04/02/17 08:59 Last Admin: 02/04/17 09:10 Dose: 40 mg Lorazepam (Ativan) 1 mg PO Q6HR PRN; Protocol PRN Reason: Anxiety Stop: 04/02/17 15:41 Last Admin: 02/01/17 22:29 Dose: 1 mg Mupirocin (Bactroban Oint) 1 appl NS BID [facility] Stop: 02/07/17 09:01 Last Admin: 02/04/17 09:08 Dose: 1 appl Olanzapine (Zyprexa Zydis) 10 mg PO HS [facility] PRN Reason: Protocol Stop: 04/02/17 20:59 Last Admin: 02/03/17 21:04 Dose: 10 mg Paroxetine HCl (Paxil) 30 mg PO DAILY [facility] PRN Reason: Protocol Stop: 04/02/17 08:59 Last Admin: 02/04/17 09:08 Dose: 30 mg Pioglitazone HCl (Actos) 30 mg PO DAILY [facility] Stop: 04/02/17 08:59 Last Admin: 02/04/17 09:10 Dose: 30 mg Risperidone (Risperdal) 3 mg PO DAILY [facility] PRN Reason: Protocol Stop: 04/02/17 08:59 Last Admin: 02/04/17 09:08 Dose: 3 mg Sitagliptin Phosphate (Januvia) 100 mg PO DAILY [facility] Stop: 04/02/17 08:59 Last Admin: 02/04/17 09:10 Dose: 100 mg Trazodone HCl (Desyrel) 200 mg PO HS [facility] PRN Reason: Protocol Stop: 04/02/17 20:59 Last Admin: 02/03/17 21:04 Dose: 200 mg General: Cooperative, No acute distress Neck: Supple Cardiovascular: Rubs Abdomen: Bowel sounds Assessment/Plan - Problem List Patient Problems: All Active Problems DIZZINESS, WEAKNESS AND HYPERTENSION (Acute) - Plan Plan: [place] discharge planning Nutritional Asmnt/Malnutr-PDOC - Dietary Evaluation Malnutrition Findings (Please click <Entered> for more info): Nutritional Asmnt/Malnutrition Start: 02/01/17 12: 05 Text: Status: Complete Freq: Document 02/01/17 12:05 WILL (Rec: 02/01/17 12:28 [id number]) Nutritional Asmnt/Malnutrition Patient General Information Nutritional Screening High Risk Screening Diagnosis ER: acute hyperglycemia DM, acute kidney failure, acute HTN Pertinent Medical Hx/Surgical Hx ER: mild mental retardation, DM, HTN Subjective Information 46 year old male from SNF. Pt was sitting upright, pleasant, slow in resposnes and understanding due to mild mental retardation. Asked pt to name a carbohydrate, pt said "salt." Pt confirmed taking DM meds regularly at [facility]. Pt refused edu on DM at this time, RD briefly discussed DM and explained [facility] diet, pt expressed understanding. Observed breakfast at bedside mostly finished. Pt is edentulous, denied difficulties chewing. Current Diet Order/ Nutrition Support [id number] Pertinent Medications Lopid, Novolog, Nacl Pertinent Labs 01/31: sodium 118L, creatinine 2 .1H, glucose 449H, A1c 14.2H, triglyceirdes 1007H, cholesterol 259H Nutritional Hx/Data Height 1.57 m Height (Calculated Centimeters) 157.5 Current Weight (lbs) 66.587 kg Weight (Calculated Kilograms) 66.6 Weight (Calculated Grams) 38205.4 Usual body Weight (lbs) 145 [place] Body Weight 118lb Weight Status Overweight GI Symptoms Food Allergies No Skin Integrity/Comment: Skin intact. Current %PO Good (75-100%) Estimated Nutritional Goals Calories/Kcals/Kg IBW 118lb/53.6kg Kcals Calculated 1340-1608kcal (25-30kcal/kg) Protein Calculated 38-54g (0.7-1g/kg, acute renal ) Fluid: ml 1340-1608ml (1ml/kcal) Nutritional Problem 1. Problem Problem Altered nutrition related laboratory values related to Etiology DM 2 aeb Signs/Symptoms: glucose 449H on adm, A1c 14.2H Intervention/Recommendation Comments 1. Recommend [id number] cardiac/ low fat diet for glycemic control, renal, and elevated triglycerides/cholesterol labs . 2. Explained diet and provided brief edu on DM, limited due to pt's mental status. Expected Outcomes/Goals Expected Outcomes/Goals 1. PO intake to meet at least 75% of estimated nutritional needs.
--- NOTE | 2017-02-04 15:20 | General Progress Note ---
Subjective - Review of Systems Service Date: 02/04/17 Subjective: ambulating, eager to leave Objective - Results Result Diagrams: 02/04/17 04:43 02/04/17 04:43 Recent Labs: Laboratory Last Values WBC 8.3 Th/cmm (4.8-10.8) 02/04/17 04:43 RBC 3.99 Mil/cmm (4.30-5.70) L 02/04/17 04:43 Hgb 12.2 gm/dL (13.2-17.3) L 02/04/17 04:43 Hct 35.4 % (39.0-49.0) L 02/04/17 04:43 MCV 88.6 fl (80-99) 02/04/17 04:43 MCH 30.6 pg (26.0-30.0) H 02/04/17 04:43 MCHC Differential 34.5 pg (28.0-36.0) 02/04/17 04:43 RDW 11.9 % (11.5-20.0) 02/04/17 04:43 Plt Count 249 Th/cmm (150-400) 02/04/17 04:43 MPV 8.5 fl 02/04/17 04:43 Neutrophils % 51.4 % (40.0-80.0) 02/02/17 06:05 Band Neutrophils % 0 % (0-10) 02/04/17 04:43 Lymphocytes % 37.1 % (20.0-50.0) 02/02/17 06:05 Monocytes % 5.8 % (2.0-10.0) 02/02/17 06:05 Eosinophils % 4.8 % (0.0-5.0) 02/02/17 06:05 Basophils % 0.9 % (0.0-2.0) 02/02/17 06:05 Neutrophils (Manual) 52 % (40-80) 02/04/17 04:43 Lymphocytes 42 % (20-50) 02/04/17 04:43 Monocytes 1 % (2-10) L 02/04/17 04:43 Eosinophils 5 % (0-5) 02/04/17 04:43 Basophils 0 % (0-3) 02/04/17 04:43 Platelet Estimate ADEQUATE (NORMAL) 02/04/17 04:43 Platelet Morphology NORMAL (NORMAL) 02/04/17 04:43 RBC Morph Micro Appear NORMAL (NORMAL) 02/04/17 04:43 Eos Smear Source URINE 02/04/17 00:30 Eos Smear Total Cells NONE SEEN (NONE SEEN) 02/04/17 00:30 PT 10.1 SECONDS (9.5-11.5) 01/31/17 18:53 INR 0.97 (0.5-1.4) 01/31/17 18:53 Sodium 134 mEq/L (136-145) L 02/04/17 04:43 Potassium 4.9 mEq/L (3.5-5.1) 02/04/17 04:43 Chloride 107 mEq/L (98-107) 02/04/17 04:43 Carbon Dioxide 27.3 mEq/L (21.0-31.0) 02/04/17 04:43 Anion Gap 4.6 (7.0-16.0) L 02/04/17 04:43 BUN 32 mg/dL (7-25) H 02/04/17 04:43 Creatinine 2.1 mg/dL (0.7-1.3) H 02/04/17 04:43 Est GFR ( Amer) 43.8 ml/min (>90) 02/04/17 04:43 Est GFR (Non-Af Amer) 36.2 ml/min 02/04/17 04:43 BUN/Creatinine Ratio 15.2 02/04/17 04:43 Glucose 194 mg/dL (70-105) H 02/04/17 04:43 POC Glucose 144 MG/DL (70 - 105) H 02/04/17 11:43 Hemoglobin A1c % 14.2 % (4.0-6.0) H 01/31/17 18:52 Uric Acid 4.3 mg/dL (4.4-7.6) L 02/04/17 04:43 Calcium 9.1 mg/dL (8.6-10.3) 02/04/17 04:43 Phosphorus 3.8 mg/dL (2.5-5.0) 02/04/17 04:43 Magnesium 1.7 mg/dL (1.9-2.7) L 02/04/17 04:43 Total Bilirubin 0.3 mg/dL (0.3-1.0) 02/04/17 04:43 AST 17 U/L (13-39) 02/04/17 04:43 ALT 15 U/L (7-52) 02/04/17 04:43 Alkaline Phosphatase 29 U/L (34-104) L 02/04/17 04:43 Troponin I 0.02 ng/mL (0.01-0.05) 01/31/17 18:53 B-Natriuretic Peptide 31.1 pg/mL (5.0-100.0) 01/31/17 18:53 Total Protein 5.6 gm/dL (6.0-8.3) L 02/04/17 04:43 Albumin 3.0 gm/dL (4.2-5.5) L 02/04/17 04:43 Globulin 2.6 gm/dL 02/04/17 04:43 Albumin/Globulin Ratio 1.2 (1.0-1.8) 02/04/17 04:43 Triglycerides 729 mg/dL (<150) H 02/02/17 06:05 Cholesterol 307 mg/dL (<200) H 02/02/17 06:05 LDL Cholesterol Direct 115 mg/dL (75-193) 02/02/17 06:05 HDL Cholesterol 36 mg/dL (23-92) 02/02/17 06:05 Amylase 53 U/L (29-103) 02/02/17 06:05 Lipase 113 U/L (11-82) H 02/02/17 06:05 Vitamin B12 684 pg/mL (211-946) 02/02/17 06:05 Vitamin D 25-Hydroxy 17.5 ng/mL (30.0-100.0) L 02/02/17 06:05 Free T4 0.91 ng/dL (0.82-1.77) 02/02/17 06:05 Free T3 2.0 pg/mL (2.0-4.4) 02/02/17 06:05 TSH 2.27 uIU/ml (0.34-5.60) 02/02/17 06:05 Urine Source CLEAN C 02/02/17 21:45 Urine Color PALE YELLOW 02/02/17 21:45 Urine Clarity CLEAR (CLEAR) 02/02/17 21:45 Urine pH 7.0 02/02/17 21:45 Ur Specific Toney 1.020 (1.005-1.030) 02/02/17 21:45 Urine Protein >300 mg/dL (NEGATIVE) H 02/02/17 21:45 Urine Glucose (UA) 500 mg/dL (NEGATIVE) H 02/02/17 21:45 Urine Ketones NEGATIVE mg/dL (NEGATIVE) 02/02/17 21:45 Urine Blood TRACE (NEGATIVE) 02/02/17 21:45 Urine Nitrate NEGATIVE (NEGATIVE) 02/02/17 21:45 Urine Bilirubin NEGATIVE (NEGATIVE) 02/02/17 21:45 Urine Urobilinogen 0.2 E.U./dL (0.2 - 1.0) 02/02/17 21:45 Ur Leukocyte Esterase NEGATIVE (NEGATIVE) 02/02/17 21:45 Urine RBC 0-2 /hpf (0-5) H 02/02/17 21:45 Urine WBC 0-2 /hpf (0-5) 02/02/17 21:45 Ur Epithelial Cells RARE /lpf (FEW) 02/02/17 21:45 Urine Bacteria OCCASIONAL /hpf (NONE SEEN) 02/02/17 21:45 U Random Total Protein 222.0 mg/dL 02/02/17 21:45 Ur Random Sodium 103 mmol/L 02/04/17 00:30 Urine Collection Time 24 hours 02/03/17 23:30 Urine Total Volume 3400 ml 02/03/17 23:30 Urine Creatinine 45.0 mg/dl (39.0-259.0) 02/04/17 00:30 Creat Clearance 24 Hr 46 ml/min (97.00-137.00) L 02/03/17 23:30 Body Surface Area 1.67 02/03/17 23:30 Thyroid Peroxidase Ab 9 IU/mL (0-34) 02/02/17 06:05 - Physical Exam Vitals and I&O: Vital Signs Temp 97.4 F 02/04/17 12:35 Pulse 83 02/04/17 12:35 Resp 19 02/04/17 12:35 BP 141/91 02/04/17 12:35 Pulse Ox 97 02/04/17 12:35 Intake & Output 02/03/17 02/04/17 02/04/17 18:59 06:59 18:59 Intake Total 1150 650 Output Total 1150 Balance 1150 -500 Intake: Oral 1150 650 Output: Urine 1150 Other: # Voids 4 Active Medications: Current Medications Acetaminophen (Tylenol) 650 mg PO Q4H PRN PRN Reason: Fever > 101 Stop: 04/01/17 23:35 Albuterol Sulfate (Albuterol 2.5mg/3ml Neb Ud) 2.5 mg HHN Q4H PRN PRN Reason: Wheezing Amlodipine Besylate (Norvasc) 10 mg PO DAILY [facility] Stop: 04/03/17 08:59 Last Admin: 02/04/17 09:09 Dose: 10 mg Aspirin (Aspirin Chewable) 81 mg PO DAILY [facility] Stop: 04/03/17 08:59 Last Admin: 02/04/17 09:08 Dose: 81 mg Atorvastatin Calcium (Lipitor) 20 mg PO HS [facility] PRN Reason: Protocol Stop: 04/03/17 20:59 Last Admin: 02/03/17 21:04 Dose: 20 mg Clonidine HCl (Catapres) 0.1 mg PO DAILY [facility] Stop: 04/02/17 08:59 Last Admin: 02/04/17 09:09 Dose: 0.1 mg Clonidine HCl (Catapres) 0.1 mg PO Q6HR PRN PRN Reason: BLOOD PRESSURE Stop: 04/03/17 17:59 Divalproex Sodium (Depakote Dr) 500 mg PO DAILY [facility] PRN Reason: Protocol Stop: 04/02/17 08:59 Last Admin: 02/04/17 09:09 Dose: 500 mg Ergocalciferol (Vitamin D) 50,000 iu PO QSAT [facility] Stop: 04/05/17 08:44 Last Admin: 02/04/17 09:11 Dose: 50,000 iu Fenofibrate (Tricor) 134 mg PO DAILY [facility] Stop: 04/03/17 08:59 Last Admin: 02/04/17 09:08 Dose: 134 mg Fenofibrate (Tricor) 134 mg PO DAILY [facility] Stop: 04/04/17 08:59 Last Admin: 02/03/17 11:50 Dose: Not Given Insulin Aspart (Novolog Insulin Sliding Scale) 0 units SUBQ ACHS [facility] PRN Reason: Protocol Stop: 04/02/17 07:29 Last Admin: 02/04/17 11:46 Dose: Not Given Insulin Human Isoph/Insulin Regular (Novolin 70/30) 7 units SUBQ BIDAC [facility] PRN Reason: Protocol Stop: 04/03/17 07:29 Last Admin: 02/04/17 06:33 Dose: 7 unit Ipratropium [place] (Atrovent Neb 0.5mg/2.5ml) 0.5 mg HHN TIDRT [facility] Stop: 04/02/17 14:59 Lisinopril (Zestril) 40 mg PO DAILY [facility] Stop: 04/02/17 08:59 Last Admin: 02/04/17 09:10 Dose: 40 mg Lorazepam (Ativan) 1 mg PO Q6HR PRN; Protocol PRN Reason: Anxiety Stop: 04/02/17 15:41 Last Admin: 02/01/17 22:29 Dose: 1 mg Mupirocin (Bactroban Oint) 1 appl NS BID [facility] Stop: 02/07/17 09:01 Last Admin: 02/04/17 09:08 Dose: 1 appl Olanzapine (Zyprexa Zydis) 10 mg PO HS [facility] PRN Reason: Protocol Stop: 04/02/17 20:59 Last Admin: 02/03/17 21:04 Dose: 10 mg Paroxetine HCl (Paxil) 30 mg PO DAILY [facility] PRN Reason: Protocol Stop: 04/02/17 08:59 Last Admin: 02/04/17 09:08 Dose: 30 mg Pioglitazone HCl (Actos) 30 mg PO DAILY [facility] Stop: 04/02/17 08:59 Last Admin: 02/04/17 09:10 Dose: 30 mg Risperidone (Risperdal) 3 mg PO DAILY [facility] PRN Reason: Protocol Stop: 04/02/17 08:59 Last Admin: 02/04/17 09:08 Dose: 3 mg Sitagliptin Phosphate (Januvia) 100 mg PO DAILY [facility] Stop: 04/02/17 08:59 Last Admin: 02/04/17 09:10 Dose: 100 mg Trazodone HCl (Desyrel) 200 mg PO HS [facility] PRN Reason: Protocol Stop: 04/02/17 20:59 Last Admin: 02/03/17 21:04 Dose: 200 mg General: Alert, Cooperative, No acute distress HEENT: Atraumatic, PERRLA, EOMI, Mucous membr. moist/pink Neck: Supple, +2 carotid pulse wo bruit Cardiovascular: Regular rate, Normal S1, Normal S2 Lungs: Clear to auscultation, Normal air movement Abdomen: Bowel sounds, Soft Extremities: no Edema Neurological: Normal speech, Strength at 5/5 X4 ext, Sensation intact Skin: no Rash Psych/Mental Status: Other (anxious) Assessment/Plan - Problem List Patient Problems: All Active Problems DIZZINESS, WEAKNESS AND HYPERTENSION (Acute) - Assessment Assessment: CKD Pseudohyponatremia Type 2 DM HTN w/ CKD Mod Malnutrition Schizoaffective disorder Dyslipidemia Anxiety Ds. Intellectual disability - Plan Plan: Lab - Result Diagrams 02/04/17 04:43 02/04/17 04:43 Current Medications Acetaminophen (Tylenol) 650 mg PO Q4H PRN PRN Reason: Fever > 101 Stop: 04/01/17 23:35 Albuterol Sulfate (Albuterol 2.5mg/3ml Neb Ud) 2.5 mg HHN Q4H PRN PRN Reason: Wheezing Amlodipine Besylate (Norvasc) 10 mg PO DAILY [facility] Stop: 04/03/17 08:59 Last Admin: 02/04/17 09:09 Dose: 10 mg Aspirin (Aspirin Chewable) 81 mg PO DAILY [facility] Stop: 04/03/17 08:59 Last Admin: 02/04/17 09:08 Dose: 81 mg Atorvastatin Calcium (Lipitor) 20 mg PO HS [facility] PRN Reason: Protocol Stop: 04/03/17 20:59 Last Admin: 02/03/17 21:04 Dose: 20 mg Clonidine HCl (Catapres) 0.1 mg PO DAILY [facility] Stop: 04/02/17 08:59 Last Admin: 02/04/17 09:09 Dose: 0.1 mg Clonidine HCl (Catapres) 0.1 mg PO Q6HR PRN PRN Reason: BLOOD PRESSURE Stop: 04/03/17 17:59 Divalproex Sodium (Depakote Dr) 500 mg PO DAILY [facility] PRN Reason: Protocol Stop: 04/02/17 08:59 Last Admin: 02/04/17 09:09 Dose: 500 mg Ergocalciferol (Vitamin D) 50,000 iu PO QSAT [facility] Stop: 04/05/17 08:44 Last Admin: 02/04/17 09:11 Dose: 50,000 iu Fenofibrate (Tricor) 134 mg PO DAILY [facility] Stop: 04/03/17 08:59 Last Admin: 02/04/17 09:08 Dose: 134 mg Fenofibrate (Tricor) 134 mg PO DAILY [facility] Stop: 04/04/17 08:59 Last Admin: 02/03/17 11:50 Dose: Not Given Insulin Aspart (Novolog Insulin Sliding Scale) 0 units SUBQ ACHS [facility] PRN Reason: Protocol Stop: 04/02/17 07:29 Last Admin: 02/04/17 11:46 Dose: Not Given Insulin Human Isoph/Insulin Regular (Novolin 70/30) 7 units SUBQ BIDAC [facility] PRN Reason: Protocol Stop: 04/03/17 07:29 Last Admin: 02/04/17 06:33 Dose: 7 unit Ipratropium [place] (Atrovent Neb 0.5mg/2.5ml) 0.5 mg HHN TIDRT [facility] Stop: 04/02/17 14:59 Lisinopril (Zestril) 40 mg PO DAILY [facility] Stop: 04/02/17 08:59 Last Admin: 02/04/17 09:10 Dose: 40 mg Lorazepam (Ativan) 1 mg PO Q6HR PRN; Protocol PRN Reason: Anxiety Stop: 04/02/17 15:41 Last Admin: 02/01/17 22:29 Dose: 1 mg Mupirocin (Bactroban Oint) 1 appl NS BID [facility] Stop: 02/07/17 09:01 Last Admin: 02/04/17 09:08 Dose: 1 appl Olanzapine (Zyprexa Zydis) 10 mg PO HS [facility] PRN Reason: Protocol Stop: 04/02/17 20:59 Last Admin: 02/03/17 21:04 Dose: 10 mg Paroxetine HCl (Paxil) 30 mg PO DAILY [facility] PRN Reason: Protocol Stop: 04/02/17 08:59 Last Admin: 02/04/17 09:08 Dose: 30 mg Pioglitazone HCl (Actos) 30 mg PO DAILY [facility] Stop: 04/02/17 08:59 Last Admin: 02/04/17 09:10 Dose: 30 mg Risperidone (Risperdal) 3 mg PO DAILY [facility] PRN Reason: Protocol Stop: 04/02/17 08:59 Last Admin: 02/04/17 09:08 Dose: 3 mg Sitagliptin Phosphate (Januvia) 100 mg PO DAILY [facility] Stop: 04/02/17 08:59 Last Admin: 02/04/17 09:10 Dose: 100 mg Trazodone HCl (Desyrel) 200 mg PO HS [facility] PRN Reason: Protocol Stop: 04/02/17 20:59 Last Admin: 02/03/17 21:04 Dose: 200 mg Cr, stable @ 2.1 Na up to 134 possible dc today Nutritional Asmnt/Malnutr-PDOC - Dietary Evaluation Malnutrition Findings (Please click <Entered> for more info): Nutritional Asmnt/Malnutrition Start: 02/01/17 12: 05 Text: Status: Complete Freq: Document 02/01/17 12:05 GSUN (Rec: 02/01/17 12:28 GSUN [id number]) Nutritional Asmnt/Malnutrition Patient General Information Nutritional Screening High Risk Screening Diagnosis ER: acute hyperglycemia DM, acute kidney failure, acute HTN Pertinent Medical Hx/Surgical Hx ER: mild mental retardation, DM, HTN Subjective Information 46 year old male from [facility]. Pt was sitting upright, pleasant, slow in resposnes and understanding due to mild mental retardation. Asked pt to name a carbohydrate, pt said "salt." Pt confirmed taking DM meds regularly at [facility]. Pt refused edu on DM at this time, RD briefly discussed DM and explained [facility] diet, pt expressed understanding. Observed breakfast at bedside mostly finished. Pt is edentulous, denied difficulties chewing. Current Diet Order/ Nutrition Support [id number] Pertinent Medications Lopid, Novolog, Nacl Pertinent Labs 01/31: sodium 118L, creatinine 2 .1H, glucose 449H, A1c 14.2H, triglyceirdes 1007H, cholesterol 259H Nutritional Hx/Data Height 1.57 m Height (Calculated Centimeters) 157.5 Current Weight (lbs) 66.587 kg Weight (Calculated Kilograms) 66.6 Weight (Calculated Grams) 40617.4 Usual body Weight (lbs) 145 [place] Body Weight 118lb Weight Status Overweight GI Symptoms Food Allergies No Skin Integrity/Comment: Skin intact. Current %PO Good (75-100%) Estimated Nutritional Goals Calories/Kcals/Kg IBW 118lb/53.6kg Kcals Calculated 1340-1608kcal (25-30kcal/kg) Protein Calculated 38-54g (0.7-1g/kg, acute renal ) Fluid: ml 1340-1608ml (1ml/kcal) Nutritional Problem 1. Problem Problem Altered nutrition related laboratory values related to Etiology DM 2 aeb Signs/Symptoms: glucose 449H on adm, A1c 14.2H Intervention/Recommendation Comments 1. Recommend [id number] cardiac/ low fat diet for glycemic control, renal, and elevated triglycerides/cholesterol labs . 2. Explained diet and provided brief edu on DM, limited due to pt's mental status. Expected Outcomes/Goals Expected Outcomes/Goals 1. PO intake to meet at least 75% of estimated nutritional needs.
--- NOTE | 2017-02-05 10:19 | Progress Notes ---
SUBJECTIVE: The patient was seen in his room. The patient appears to be comfortable. No signs and symptoms of distress. Per patient, he is ready to be discharged to a alf facility. OBJECTIVE: HEENT: Head is atraumatic, normocephalic. Eyes: Bilateral conjunctivae are clear from injections. NECK: Supple. No JVD. CARDIOVASCULAR: S1 and S2 heard without murmur. PULMONARY: Clear to auscultation. GASTROINTESTINAL: Soft and nontender without guarding. MUSCULOSKELETAL: No edema. No clubbing. ASSESSMENT: 1. Diabetes. 2. Hypertension. 3. Acute kidney failure. 4. Anxiety. 5. Bipolar. 6. Hyperlipidemia. 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 [facility]# [id number]
--- NOTE | 2017-02-06 03:28 | Progress Notes ---
The patient of Dr. Gutierrez. SUBJECTIVE: This is a 46-year-old mentally retarded patient who has uncontrolled hypertension and diabetes. The patient at the present time is stable. The patient is stable enough for discharge. OBJECTIVE: BLOOD PRESSURE: Blood pressure 138/70, pulse 70, respirations 20, and temperature 98. LUNGS: Clear. HEART: Regular rhythm S1, S2. No S3, S4. ABDOMEN: Soft. No organomegaly. ASSESSMENT: Diabetes mellitus type 2, controlled on insulin, hypertension controlled, mental retardation, schizophrenia, hyperlipidemia, and diabetic CKD stage 3. The patient is cleared for discharge. JOB# [id number]
--- NOTE | 2017-02-06 23:15 | Discharge Summary ---
DATE OF DISCHARGE: 02/04/2017 COURSE OF TREATMENT: This is a 46-year-old male with history of mild mental retardation, who was brought in from a board and care to the Emergency Room due to elevated blood sugar and also elevated blood pressure with some symptoms of dizziness on which from the Emergency Room, series of tests are done and found out that the patient has elevated blood sugar and acute elevation of blood pressure due to uncontrolled diabetes and uncontrolled hypertension, so the patient was admitted to Med/Surg floor on which the patient was put on an insulin regimen and afterwards once the blood pressure and blood sugar were controlled, the patient was discharged to a [facility] due to the patient came out positive with MRSA of the nares and also the patient is currently still on an insulin regimen. The patient was discharged to [facility]. DISCHARGE DIAGNOSES: As follows: 1. Acute hyperglycemia. 2. Acute elevated blood pressure. 3. Acute kidney injury. 4. Bipolar disorder. 5. Mild mental retardation. DISCHARGE INSTRUCTION: Primary doctor to follow the patient in the [facility] and continue the rest of medications. [facility]# [id number]
== END 2017-02-04 16:06 | DRG 682 ==
LOC: ER 18:46 → ICU 20:40 → TELE 02-01 17:45
PROVIDERS: ADMIT Internal Medicine; ATTEND Internal Medicine
DX: N17.9 Acute kidney failure, unspecified (principal); E11.00 Type 2 diabetes mellitus with hyperosmolarity without nonketotic hyperglycemic-hyperosmolar coma (NKHHC); E44.0 Moderate protein-calorie malnutrition; E87.1 Hypo-osmolality and hyponatremia; N18.3 Chronic kidney disease, stage 3 (moderate); E11.21 Type 2 diabetes mellitus with diabetic nephropathy; F31.9 Bipolar disorder, unspecified; F41.9 Anxiety disorder, unspecified; F70 Mild intellectual disabilities; E78.5 Hyperlipidemia, unspecified; F25.1 Schizoaffective disorder, depressive type; I12.9 Hypertensive chronic kidney disease with stage 1 through stage 4 chronic kidney disease, or unspecified chronic kidney disease; Z88.6 Allergy status to analgesic agent; Z88.0 Allergy status to penicillin; Z91.012 Allergy to eggs; Z91.040 Latex allergy status; Z91.041 Radiographic dye allergy status; Z79.4 Long term (current) use of insulin; Z68.26 Body mass index [BMI] 26.0-26.9, adult
CPT/HCPCS: 36415-UA; 71010-TC; 76770-TC; 80053-TC; 80061-TC; 81001-TC; 81015-TC; 81050-TC; 82150-TC; 82306-90; 82533-90; 82570-TC; 82575-TC; 82607-90; 82948-90; 83036-90; 83690-TC; 83735-TC; 83880-TC; 84100-TC; 84156-TC; 84300-TC; 84439-90; 84443-TC; 84479-90; 84484-TC; 84550-TC; 85007-TC; 85025-TC; 85027-TC; 85610-TC; 86376-90; 93005; 96374; J1815; J3475; J7030; Z7610